=== PATIENT | female | born 1985 | race Caucasian/White ===

== ENCOUNTER 2017-12-26 13:23 | Inpatient (IN) | payer OTHER ==
[~2017-12-26] VITALS: Ht 160 cm; Wt 65.8 kg
[2017-12-26 13:32] VITALS: BP 136/68
--- NOTE | 2017-12-26 13:35 | NUR ---
32 YO FEMALE BIB EMS FROM CONFUCIANIST FOR ALTERED MENTAL STATUS, AWAKE AND NON VERBAL ON ARRIVAL, WAS HAVING A PSYCHOTIC BREAK AT THE CONFUCIANIST. UNKNOWN HX. TACHICARDIA NOTED. HR EVEN AND REGULAR, RR EVEN AND UNLABORED, LS CLEAR THROUOUT, BS ACTIVE X4, ABD SOFT AND NON TENDER, NO TRAUMA OR INJURIES NOTED. ER MD MADE AWARE, WILL CONTINUE TO MONITOR.
--- NOTE | 2017-12-26 13:40 | NUR ---
Patient being evaluated by physician at bedside.
[2017-12-26] MEDS ORDERED: NACL 0.9% 1,000 ML IV ONE (13:54)
--- NOTE | 2017-12-26 14:00 | NUR ---
PT RESPONDED TO DR RENEE WITH SIMPLE ANSWERS STATING "NO" TO URINATING ON HER SELF, AND " I DID NOT" TO BITTING TOUNGE . SPEECH CLEAR.
--- NOTE | 2017-12-26 15:00 | NUR ---
PT REFUSED CATHETER
--- NOTE | 2017-12-26 15:05 | NUR ---
PT NON VERBAL AT THIS TIME
[2017-12-26 15:44] LABS: BASOPHILS % (AUTO) 0.3 % (0.0-2.0); EOSINOPHILS % (AUTO) 0.6 % (0.0-4.0); HEMATOCRIT 38.1 % (36-48); HEMOGLOBIN 12.6 g/dL (12.0-16.0); LYMPHOCYTES # (AUTO) 1.1 K/uL (2.5-16.5); LYMPHOCYTES % (AUTO) 15.7 % (20.5-51.1); MEAN CORPUSCULAR HEMOGLOBIN 27 pg (27-31); MEAN CORPUSCULAR HGB CONC 33 g/dL (33-37); MEAN CORPUSCULAR VOLUME 81.1 fL (80-94); MONOCYTES # (AUTO) 0.3 K/uL (0.8-1.0); MONOCYTES % (AUTO) 4.7 % (1.7-9.3); NEUTROPHILS # (AUTO) 5.5 K/uL (1.8-7.7); NEUTROPHILS % (AUTO) 78.7 % (42.2-75.2); PLATELET COUNT (AUTO) 224 K/uL (140-450); RED CELL DISTRIBUTION WIDTH 14.7 % (11.6-13.7)
--- NOTE | 2017-12-26 16:00 | NUR ---
PT REFUSED CT
--- NOTE | 2017-12-26 16:05 | NUR ---
PT NON VERBAL AT THIS TIME
[2017-12-26 16:13] LABS: ALBUMIN 4.3 g/dL (3.4-5.0); ANION GAP 14.1 (8-16); ASPARTATE AMINOTRANSFERASE 12 U/L (15-37); CARBON DIOXIDE 26.1 mmol/L (21-32); CHLORIDE 99 mmol/L (98-107); CREATININE 0.6 mg/dL (0.6-1.3); GFR ARICAN-AMERICAN 151 mL/min (>90); GLUCOSE 120 mg/dL (74-106); POTASSIUM 3.2 mmol/L (3.5-5.1); SODIUM SERUM 136 mmol/L (136-145); TOTAL BILIRUBIN 0.2 mg/dL (0.0-1.0); UREA NITROGEN, BLOOD 9 mg/dL (7-18)
[2017-12-26 16:18] LABS: ACETAMINOPHEN < 0.5 ug/ml (10-30)
--- NOTE | 2017-12-26 16:42 | NUR ---
[place]- Officer Edd and Officer Logan at bedside evaluating patient
--- NOTE | 2017-12-26 16:44 | NUR ---
[place] [employer] AT BEDSIDE
--- NOTE | 2017-12-26 16:45 | NUR ---
PT SPEAKING TO PD, PT STATES HX OF SEIZURES,
[2017-12-26] MEDS ORDERED: ESCI20TA PO (17:36)
[2017-12-26] MEDS ORDERED: CYAN1TAB82 PO (17:36)
[2017-12-26] MEDS ORDERED: LEVO0.029 PO (17:36)
[2017-12-26] MEDS ORDERED: CITA10TA11 PO (17:36)
[2017-12-26] MEDS ORDERED: KEP500 PO (17:36)
[2017-12-26] MEDS ORDERED: DIVA250T PO (17:36)
[2017-12-26] MEDS ORDERED: PHEN100C3 PO (17:36)
[2017-12-26] MEDS ORDERED: ACETAMINOPHEN 325 MG TAB PO PRN (17:40)
[2017-12-26] MEDS ORDERED: HYDROcodone/APAP 5/325 MG 1 TAB TAB PO PRN ×2 (17:40)
[2017-12-26] MEDS ORDERED: ONDANSETRON 4 MG/2 ML VIAL IVP PRN (17:40)
[2017-12-26] MEDS ORDERED: POTASSIUM CHLORIDE 10 MEQ TABER PO ONE (17:40)
[2017-12-26] MEDS ORDERED: LORazepam 2 MG/ML VIAL IVP PRN (17:40)
--- NOTE | 2017-12-26 18:20 | NUR ---
PT WAS IN FORMED OF ADMITION AND JUMPED OFF OF [facility] PULLING OUT IV, TIP WAS INTACT. DRESSING APPLIED TO SITE. PT REFUSED TO VERBALIZE ANYTHING, SECURITY WAS CALLED. PT PEED ON FLOOR. BATHROOM WAS OFFERED , PT CONTINUED NOT TO BE NON VERBAL. PT POSITIONED SELF BACK ONTO GURNEY
--- NOTE | 2017-12-26 18:35 | NUR ---
PT ADMITTED TO [facility]. ARRIVED TO UNIT VIA [facility] ACCOMPANIED BY RNS AND SECURITY. BEDSIDE REPORT GIVEN BY REILLY FERREIRA. PT TRANSFERRED TO BED FROM [facility]. PT IS AWAKE BUT NOT RESPONDING OR TALKING TO STAFF. HAD EYES CLOSED AND WOULD NOT MOVE IN BED. PT HAD VOIDED IN BED. CHANGED GOWN. NO IV SITE. REPORTED BY ER NURSE PT HAD PULLED OUT. MRSA SWAB DONE. VS: BP 112/73, HR 111, TEMP 98.1, O2 SAT 98% ON RA. UNABLE TO ASSESS PAIN LEVEL WHEN ASKING QUESTIONS TO PT. PT DOES NOT RESPOND. PLACED IN ROOM 109B. WILL CONTINUE TO MONITOR.
--- NOTE | 2017-12-26 18:35 | NUR ---
Patient will be admitted to care of DR MAYEN. Admited to M/S. Will go to room 109B. Belongings list completed. Report to MOUSTAPHA FERREIRA .
--- NOTE | 2017-12-26 19:30 | NUR ---
ENDORSED PT TO SHIPYARD PAINTING SUPERVISOR NURSE BENITO AT BEDSIDE FOR CONTINUITY OF CARE. PT IN STABLE CONDITION.
[2017-12-26 19:31] VITALS: BP 112/73
--- NOTE | 2017-12-26 19:31 | NUR ---
RECEIVED BEDSIDE REPORT FROM DAY SHIFT NURSE CHELSEA, PT RESTING, NO DISTRESS NOTED, PT REFUSED TO TALK TO NURSE, WHEN ASKED PT SIMPLY IGNORED NURSE AND STARES AT THE WALL, PT STABLE, INITIAL ASSESSMENT DONE, ALL SAFETY PRECAUTION MET, WILL CONTINUE FREQ MONITORING.
[2017-12-26] MEDS: levETIRAcetam 500 MG TAB PO SCH (21:00)
--- NOTE | 2017-12-26 21:35 | NUR ---
PT REFUSED MEDICATION, WOULD NOT ANSWER NURSE, AND WOULD NOT TAKE MEDICATION, PT STABLE, NO DISTRESS NOTED, WILL CONTINUE WITH FREQ MONITORING.
--- NOTE | 2017-12-26 23:33 | NUR ---
CHECKED ON PT, PT REFUSED V/S, BP WAS ABLE TO BE TAKEN, BUT PT REFUSED, PT STABLE, NO SOB, ON ROOM AIR, PT STARES AT THE WALL, FLAT AFFECT, NOT RESPONDING TO NAME, WILL CONTINUE TO MONITOR FREQUENTLY.
[2017-12-27] VITALS: BP 111/74
--- NOTE | 2017-12-27 02:03 | NUR ---
CHECKED ON PT, PT SLEEPING, NO DISTRESS NOTED, CALL LIGHT WITHIN REACH, WILL CONTINUE TO MONITOR.
--- NOTE | 2017-12-27 03:10 | NUR ---
CHECKED ON PT, PT STARING AT THE CEILING, NOT RESPONDING TO NAME, PT HAD FLAT AFFECT, NO DISTRESS NOTED, WILL CONTINUE TO MONITOR.
--- NOTE | 2017-12-27 04:22 | NUR ---
PT SLEEPING, NO DISTRESS NOTED, CALL LIGHT WITHIN REACH, WILL CONTINUE TO MONITOR.
--- NOTE | 2017-12-27 05:00 | NUR ---
PT REFUSES BLOOD DRAW, NO DISTRESS NOTED, CALL LIGHT WITHIN REACH, WILL CONTINUE TO MONITOR.
[2017-12-27] MEDS ORDERED: LEVOTHYROXINE 0.025 MG TAB PO SCH (07:16)
--- NOTE | 2017-12-27 07:27 | NUR ---
PT REFUSES MEDICATION, WOULD NOT ANSWER TO NURSE, PT RESTING, NO DISTRESS NOTED, CALL LIGHT WITHIN REACH, WILL CONTINUE TO MONITOR.
--- NOTE | 2017-12-27 07:28 | NUR ---
ENDORSED PT TO DAY SHIFT NURSE, PT IN STABLE CONDITION, NO DISTRESS NOTED.
--- NOTE | 2017-12-27 07:28 | NUR ---
RECEIVED PT FROM SOCIAL MEDIA ASSISTANT NURSE BENITO. PT FLAT AFFECT, DOES NOT MAKE NEEDS KNOWN OR MAKE EYE CONTACT, V/S TAKEN NOTHING ABNORMAL, DOES NOT ANSWER QUESTIONS. EXPLAINED PLAN OF CARE, WILL CONTINUE TO MONITOR.
[2017-12-27 08:00] VITALS: BP 112/72
[2017-12-27] MEDS: PHENYTOIN 100 MG CAPER PO SCH ×3 (08:56→17:00)
[2017-12-27] MEDS: ESCITALOPRAM 20 MG TAB PO SCH (08:57)
[2017-12-27] MEDS: levETIRAcetam 500 MG TAB PO SCH ×2 (08:57→21:00)
[2017-12-27] MEDS: ENOXAPARIN 40 MG/0.4 ML SYR SUBQ SCH (08:57)
--- NOTE | 2017-12-27 08:58 | NUR ---
PATIENT REFUSED ALL MEDIATION/TREATMENT/FOOD AND WATER. EDUCATION PROVIDED, WILL CONTINUE TO MONITOR.
--- NOTE | 2017-12-27 09:24 | NUR ---
PATIENT HAS BEEN SCREENED AND CATEGORIZED LOW NUTRITION RISK. PATIENT WILL BE SEEN WITHIN 7 DAYS OF ADMISSION. 01/02/[address]
[2017-12-27] MEDS ORDERED: MAGNESIUM SULFATE 50% 1,000 MG in NACL 0.9% 50 ML IV ONE (10:30)
[2017-12-27] MEDS ORDERED: MAGNESIUM SULFATE 1GM in DEXTROSE 5% 100 ML PREMIX IV SCH (11:00)
--- NOTE | 2017-12-27 12:50 | NUR ---
IV PLACED IN L FA 20 G. INTACT AND PATENT. WILL GIVE DUE MEDICATIONS NOW.
--- NOTE | 2017-12-27 13:00 | NUR ---
Vacuum Metalizer Operator Notes: I attempted to met with patient to screen and gather additional information about her. Patient refused to communicate with these insurance underwriter sales, and provide any information. Patient close her eyes and turn around the opposite side where these insurance underwriter sales was standing to avoid interaction. I asked her some questions and left room after several attempts to talk to patient with no response back from her.
--- NOTE | 2017-12-27 13:14 | NUR ---
PT STATED "I KNOW WHAT YOU'RE DOING". ASKED IF CAN GIVE DUE MEDICATIONS PT REFUSED.
--- NOTE | 2017-12-27 13:27 | NUR ---
CM NOTE INITIAL REVIEW FAXED TO [facility] [phone] [place] [phone] [place] [phone]
--- NOTE | 2017-12-27 15:10 | NUR ---
PT STATED, "HURRY UP AND TRY TO KILL ME". DR JUDD MADE AWARE. WILL CONTINUE TO MONITOR
[2017-12-27 15:27] VITALS: BP 110/53
--- NOTE | 2017-12-27 15:30 | NUR ---
PT WILL BE PLACED ON 5150 HOLD, 1:1 SITTER IMPLEMENTED, ALL SAFETY CONSIDERATIONS MET, WILL CONTINUE TO MONITOR.
--- NOTE | 2017-12-27 17:20 | NUR ---
PT IN BED NO SIGNS OF DISTRESS, EDUCATED ON NEED FOR DUE MEDICATION, PT STATES, "NO". CHARGE NURSE DON MADE AWARE. WILL CONTINUE TO MONITOR.
--- NOTE | 2017-12-27 18:10 | NUR ---
PT RESTING IN BED, REFUSED DINNER AD FLUIDS, STILL 1:1 SITTER, WILL CONTINUE TO MONITOR.
--- NOTE | 2017-12-27 19:13 | NUR ---
BEDSIDE REPORT GIVEN TO RAFAT ADKINS. PT STABLE AT THIS TIME.
--- NOTE | 2017-12-27 19:15 | NUR ---
RECD. RESTING IN BED WITH EYES CLOSED. REFUSED TO OPEN EYES WHEN SELF INTRODUCED. NOTED EYELASHES KEEP ON MOVING WHILE QUESTIONS WERE BEING ASKED TO ASSESS PATIENT. STILL REFUSED TO OPEN EYES AND TALK. RESPIRATION EVEN AND UNLABORED. IV SALINE LOCK AT THE LEFT ARM G22, PATENT AND INTACT. NO DISTRESS NOTED AND NO APPEARANCE OF DISCOMFORT 0/10. VS STABLE. WILL CONTINUE TO MONITOR PATIENT. 1:1 SITTER SITTING NEAR DOOR.
--- NOTE | 2017-12-27 20:00 | NUR ---
Patient's Plan of Care was discussed and reviewed with RAFAT: LUCILLE
--- NOTE | 2017-12-27 21:00 | NUR ---
TRIED AGAIN TO CONVERSE WITH PATIENT. REMINDED SHE HAS TO TAKE MEDICATION ORDERED BY MD. OPENS EYES AT FIRST WITH A BLANK STARE. STILL DOES NOT TALK. OFFERED JUICE BUT JUICE JUST COMES OUT. CHECKED PATIENT WITH SITTER IF PATIENT IS CLEAN. ALLOWED ASSISTANT WOMEN'S ROWING COACH TO CHECKED AND ALLOWS TO HAVE HER FACE WIPE WITH A SMALL TOWEL. WHEN SHAUNA OFFERED, DID NOT RESPOND CONTINUED CLOSING HER EYES.
--- NOTE | 2017-12-27 21:30 | NUR ---
ASSUMED ROLE OF NURSE SITTER FOR THE PATIENT, STILL IN BED WITH EYES CLOSED. WILL CONTINUE TO MONITOR BEHAVIOR.
[2017-12-27] MEDS: DEXT 5% / NACL 0.45% 1,000 ML IV SCH (23:41)
--- NOTE | 2017-12-27 23:41 | NUR ---
INFUSED D5NS AT 75 ML/HR ORDERED BY DR. MAYEN. DID NOT ATTEMPT TO TAKE IV OFF.
[2017-12-28] VITALS: BP 106/69
--- NOTE | 2017-12-28 03:00 | NUR ---
IV INFILTRATED, WILL INSERT NEW IV LINE.
--- NOTE | 2017-12-28 06:00 | NUR ---
NEW SITTER SITTING NEAR DOOR TO MONITOR PATIENT. NO UNUSUAL BEHAVIOR NOTED DURING SHIFT. REFUSED MEDICATIONS, JUICE OFFERED. SLEEPING MOST OF THE TIME.
[2017-12-28] MEDS: LEVOTHYROXINE 0.025 MG TAB PO SCH (06:30)
--- NOTE | 2017-12-28 06:30 | NUR ---
OPENS EYES, STILL DOES NOT SPEAK. NEW IV LINE INSERTED AT THE RIGHT HAND G24 BY HANNA LOPEZ.
--- NOTE | 2017-12-28 06:54 | NUR ---
WHEN INQUIRED IF SHE WILL TAKE PROTONIX ORDERED BY , DOES NOT SPEAK BUT SHAKES HEAD. ADVISED TO TAKE MORNING MEDS AND EAT BREAKFAST. DOES NOT RESPOND.
--- NOTE | 2017-12-28 07:25 | NUR ---
RECEIVED REPORT FROM NIGHTSHIFT NURSE AT BEDSIDE. PATIENT PRESENTS ON RIGHT LATERAL SIDE LYING POSITION. PATIENT HAS AN IV ON HER RIGHT HAND 24 G RUNNING D5 O.45 NS AT 75 ML/HR. PATIENT DOES NOT SPEAK AT THIS TIME. PATIENT HAS 1:1 SITTER. NO SIGNS OF ACTIVE HALLUCINATIONS. NO DISTRESS NOTED. NO PAIN NOTED. PATIENT'S BED LOWERED. WILL CONTINUE TO MONITOR PATIENT.
--- NOTE | 2017-12-28 07:30 | NUR ---
ENDORSED TO AM NURSE FOR CONTINUITY OF CARE.
[2017-12-28 08:00] VITALS: BP 114/66
[2017-12-28] MEDS: DIVALPROEX 250 MG TABEC PO SCH (08:45)
[2017-12-28] MEDS: PHENYTOIN 100 MG CAPER PO SCH ×3 (08:45→17:00)
[2017-12-28] MEDS: levETIRAcetam 500 MG TAB PO SCH ×2 (08:46→21:00)
[2017-12-28] MEDS: ESCITALOPRAM 20 MG TAB PO SCH (08:46)
[2017-12-28] MEDS: ENOXAPARIN 40 MG/0.4 ML SYR SUBQ SCH (08:48)
--- NOTE | 2017-12-28 09:30 | NUR ---
PATIENT RESTING AT THIS TIME. NO DISTRESS NOTED. 1:1 SITTER AT BEDSIDE. WILL CONTINUE TO MONITOR PATIENT.
--- NOTE | 2017-12-28 09:45 | NUR ---
CM NOTE CONCURRENT REVIEW FAXED TO [facility] [phone] [place] [phone] [place] [phone]. RECEIVED ORDER TO TRANSFER TO [facility]. PACKET FAXED TO [facility].
[2017-12-28 10:01] LABS: BASOPHILS % (AUTO) 0.5 % (0.0-2.0); EOSINOPHILS # (AUTO) 0.1 K/uL (0-0.4); EOSINOPHILS % (AUTO) 1.3 % (0.0-4.0); HEMATOCRIT 38.9 % (36-48); HEMOGLOBIN 12.8 g/dL (12.0-16.0); LYMPHOCYTES # (AUTO) 1.6 K/uL (2.5-16.5); LYMPHOCYTES % (AUTO) 25.4 % (20.5-51.1); MEAN CORPUSCULAR HEMOGLOBIN 27 pg (27-31); MEAN CORPUSCULAR HGB CONC 33 g/dL (33-37); MEAN CORPUSCULAR VOLUME 80.9 fL (80-94); MONOCYTES # (AUTO) 0.4 K/uL (0.8-1.0); MONOCYTES % (AUTO) 5.8 % (1.7-9.3); NEUTROPHILS # (AUTO) 4.3 K/uL (1.8-7.7); PLATELET COUNT (AUTO) 243 K/uL (140-450); RED BLOOD CELL COUNT(AUTO) 4.81 MIL/uL (4.20-5.40); RED CELL DISTRIBUTION WIDTH 14.4 % (11.6-13.7); WHITE BLOOD COUNT (AUTO) 6.4 K/uL (4.8-10.8)
[2017-12-28 10:15] LABS: ALBUMIN 4.1 g/dL (3.4-5.0); ANION GAP 13.5 (8-16); CREATININE 0.7 mg/dL (0.6-1.3); POTASSIUM 3.5 mmol/L (3.5-5.1); TOTAL BILIRUBIN 0.4 mg/dL (0.0-1.0)
[2017-12-28 11:22] LABS: FREE T4 (FREE THYROXINE) 0.92 ng/dL (0.76-1.46); THYROID STIMULATING HORMONE 1.03 uIU/mL (0.34-3.74)
[2017-12-28 11:38] LABS: PHENYTOIN (DILANTIN) 21.1 ug/ml (10.0-20.0)
--- NOTE | 2017-12-28 12:15 | NUR ---
SPOKE TO DR. CALHOUN REGARDING 21.1 DILANTIN LEVEL AND ADMINISTRATION OF DILANTIN 100 MG AT 13:[address]. CALHOUN SAID, "IT IS OKAY TO GIVE". WILL OFFER MEDICATION TO PATIENT
[2017-12-28] MEDS: DEXT 5% / NACL 0.45% 1,000 ML IV SCH (12:42)
--- NOTE | 2017-12-28 13:30 | NUR ---
PATIENT RESTING NO DISTRESS NOTED. WILL CONTINUE TO MONITOR
--- NOTE | 2017-12-28 15:03 | NUR ---
PATIENT RESTING AT THIS TIME. NO DISTRESS NOTED. 1:1 SITTER PRESENT. WILL CONTINUE TO MONITOR PATIENT.
--- NOTE | 2017-12-28 15:24 | NUR ---
Faxed packet to Shirley at [facility]. Left Message for [facility]. Called [facility] and spoke with Martha. No beds. Called [facility]. No answer.
[2017-12-28 16:00] VITALS: BP_SYST 100; BP_SYST 98; BP_DIAS 59; BP_DIAS 62
--- NOTE | 2017-12-28 17:20 | NUR ---
PATIENT RESTING IN BED. PATIENT HAS 1:1 SITTER. NO DISTRESS NOTED. WILL CONTINUE TO MONITOR PATIENT.
--- NOTE | 2017-12-28 19:15 | NUR ---
GAVE REPORT TO NIGHTSHIFT NURSE. PATIENT HAS 1:1 SITTER. PATIENT IN STABLE CONDITION.
--- NOTE | 2017-12-28 19:16 | NUR ---
RECD. IN BED, EYES OPEN BUT STILL NOT TALKING. RESPIRATION EVEN AND UNLABORED. IV OF 1/2 NS INFUSING AT 75 ML/HR, RIGHT HAND G24. PLAN OF CARE FOR THE SHIFT DISCUSSED. NO REACTION NOTE. 1:1 SITTER MONITORING PATIENT. NO APPEARANCE OF PAIN NOTED 0/10.
--- NOTE | 2017-12-28 19:31 | NUR ---
Patient's Plan of Care was discussed and reviewed with RAFAT: LUCILLE
--- NOTE | 2017-12-28 20:30 | NUR ---
HAT PLACE ON TOILET BOWL. REMINDED PATIENT THE NEED TO COLLECT URINE FOR LAB TEST. DID NOT RESPOND. REMINDED SITTER TO ASSIST PATIENT TO COLLECT SPECIMEN.
--- NOTE | 2017-12-28 21:35 | NUR ---
SHAUNA OFFERED FOR THE NIGHT, BUT KEEP ON PRETENDING TO BE SLEEPING. TAP ARM TO WAKE UP, OPEN EYES A LITTLE AND THEN CLOSED AGAIN. EXPLAINED THE IMPORTANCE OF TAKING THIS MEDICATION BUT DID NOT BOTHER TO OPEN EYES AGAIN.
[2017-12-29] VITALS: BP 106/70
--- NOTE | 2017-12-29 01:01 | NUR ---
Notified Charge nurse Claribel RN , at this time there are no beds available for placement , will continue to call for placement and notify charge nurse is placement is found.
[2017-12-29] MEDS: DEXT 5% / NACL 0.45% 1,000 ML IV SCH ×2 (01:44→15:00)
--- NOTE | 2017-12-29 05:30 | NUR ---
No vacancy at this time, will endorsed to morning shift to continue find placement .
[2017-12-29] MEDS: LEVOTHYROXINE 0.025 MG TAB PO SCH (06:30)
--- NOTE | 2017-12-29 07:25 | NUR ---
SLEEPING MOST OF THE TIME, SPOKE ONLY ONCE TO SITTER. REFUSED ALL MEDICATIONS FOR THE SHIFT. CONDITION REMAIN STABLE. ENDORSED TO AM NURSE FOR CONTINUITY OF CARE.
--- NOTE | 2017-12-29 07:26 | NUR ---
RECEIVED REPORT FROM THE EL TEACHER NURSE. PT IS AWAKE AND ORIENTED. INTRODUCED MYSELF HER NURSE FOR TODAY. PT IS COOPERATIVE, OBEYS SIMPLE COMMANDS. ALLOWED ME TO CHECK HER V/S, WITHIN NORMAL LIMITS. ASKED HER IF SHE WILL TAKE MORNING MEDS. SHE SAID OK. WILL PREPARE. IV ON R HAND 24G. IT IS SL. PER EL TEACHER NURSE, IV PUMP KEPT BEEPING. IV SITE LOOKS INFILTRATED. SHE SAID IT IS SORE. SKIN INTACT. SITTER IN THE ROOM. PLAN: TRANSFER TO A PSYCH FACILITY AND POSSIBLY GET A URINE SAMPLE FOR LAB. WILL REMIND SITTER TO REMIND PT. HAT IN TOILET. WILL CONTINUE TO MONITOR PT.
[2017-12-29 08:00] VITALS: BP 108/69
[2017-12-29] MEDS: DIVALPROEX 250 MG TABEC PO SCH (08:32)
[2017-12-29] MEDS: ESCITALOPRAM 20 MG TAB PO SCH (08:32)
[2017-12-29] MEDS: levETIRAcetam 500 MG TAB PO SCH ×2 (08:32→21:00)
[2017-12-29] MEDS: PHENYTOIN 100 MG CAPER PO SCH ×3 (08:32→16:15)
[2017-12-29] MEDS: ENOXAPARIN 40 MG/0.4 ML SYR SUBQ SCH (08:36)
--- NOTE | 2017-12-29 08:40 | NUR ---
ADMINISTERED MORNING MEDS. PT TOLERATED WELL. REMINDED PT RE URINE SAMPLE. SITTER IN ROOM. WILL CONTINUE TO MONITOR PT.
--- NOTE | 2017-12-29 10:40 | NUR ---
PT SLEEPING. NO SIGNS OF DISTRESS. SITTER IN THE ROOM. WILL CONTINUE TO MONITOR PT.
--- NOTE | 2017-12-29 12:08 | NUR ---
PT SLEEPING. UNABLE TO STAY AWAKE LONG ENOUGH TO TAKE HER MEDS. HELD DILANTIN FOR ASP PRECAUTION. SITTER IN THE ROOM. WILL CONTINUE TO MONITOR PT.
[2017-12-29 15:57] LABS: BILIRUBIN,URINE NEGATIVE (NEGATIVE); BLOOD, URINE TRACE-I (NEGATIVE); COLOR,URINE YELLOW (YELLOW); LEUKOCYTE ESTERASE ,URINE 1+ (NEGATIVE); NITRITE, URINE NEGATIVE (NEGATIVE); UGLUCOSE NEGATIVE (NEGATIVE)
[2017-12-29 16:00] VITALS: BP 100/59
[2017-12-29 16:04] LABS: BARBITURATE, URINE NEG. ng/ml (NEG <=200); BENZODIAZEPINE, URINE NEG. ng/mL (NEG <=200); CANNABINOID, URINE NEG. ng/mL (NEG <=50); COCAINE, URINE NEG. ng/mL (NEG <=300); OPIATE, URINE NEG. ng/mL (NEG <=2000); PHENCYCLIDINE SCREEN,URINE NEG. ng/mL (NEG <=25)
--- NOTE | 2017-12-29 16:14 | NUR ---
VS WITHIN NORMAL LIMITS. PT SLEEPING. WOKE UP AND WENT RIGHT BACK TO SLEEP. NO SIGNS OF DISTRESS. SITTER IN THE ROOM. DIDN'T TOUCH LUNCH. WILL CONTINUE TO MONITOR PT. Addendum: 12/29/17 at 1616 by Gila Garcia RN PALLAVI CHAUDHARI D/T PT UNABLE TO STAY AWAKE LONG ENOUGH TO TAKE. ASP PRECAUTION.
[2017-12-29 17:53] LABS: APPEARANCE,URINE HAZY (CLEAR)
[2017-12-29 19:17] LABS: RBC,URINE 0-5 (RARE) /HPF (0-5); WBC,URINE 0-5 (RARE) /HPF (0-5)
--- NOTE | 2017-12-29 19:34 | NUR ---
ENDORSED PT TO THE REDYE HAND NURSE AT BEDSIDE FOR CONTINUITY OF CARE. PT IS IN STABLE CONDITION.
--- NOTE | 2017-12-29 19:35 | NUR ---
RECEIVED REPORT FROM DAY SHIFT RN, PATIENT RESTING IN BED, AWAKE BUT REFUSE TO TALK, NO S/S OF DISTRESS NOTED, RESPIRATION EVEN AND UNLABORED. NO IV ACCESS AT THIS TIME. 1:1 SITTER AT THE DOOR, SAFETY MEASURE ENSURED, WILL CONTINUE TO MONITOR.
--- NOTE | 2017-12-29 21:55 | NUR ---
OFFER PATIENT DUE MEDICATION KEPPRA, BUT PATIENT DID NOT TALK BACK TO ME, AND CLOSED HER EYES AND TURNED HER HEAD AWAY. PATIENT REFUSED MEDICATION, EDUCATION PROVIDED, BUT PATIENT STILL REFUSED. SAFETY MEASURE ENSURED, WILL CONTINUE TO MONITOR.
[2017-12-30] VITALS: BP 95/60
--- NOTE | 2017-12-30 00:07 | NUR ---
VITAL SIGNS STABLE, NO S/S OF DISTRESS NOTED, RESPIRATION EVEN AND UNLABORED, ON ROOM AIR. 1:1 SITTER AT THE DOOR, SAFETY MEASURE, WILL CONTINUE TO MONITOR.
--- NOTE | 2017-12-30 03:08 | NUR ---
PATIENT IS SLEEPING, NO S/S OF DISTRESS NOTED, RESPIRATION EVEN AND UNLABORED, ON ROOM AIR. 1:1 SITTER AT THE DOOR, SAFETY MEASURE ENSURED, WILL CONTINUE TO MONITOR.
[2017-12-30] MEDS: DEXT 5% / NACL 0.45% 1,000 ML IV SCH ×2 (05:11→17:33)
--- NOTE | 2017-12-30 05:14 | NUR ---
PATIENT LET US TO START A NEW IV. NEW IV 24G TO THE LEFT WRIST. OLD IV CATHETER TAKEN OUT, TIP INTACT. 1:1 SITTER AT THE DOOR. SAFETY MEASURE ENSURED, WILL CONTINUE TO MONITOR.
[2017-12-30] MEDS: LEVOTHYROXINE 0.025 MG TAB PO SCH (05:33)
--- NOTE | 2017-12-30 07:22 | NUR ---
ENDORSED PLAN OF CARE TO DAY SHIFT RN, PATIENT IS IN STABLE CONDITION.
--- NOTE | 2017-12-30 07:25 | NUR ---
RECEIVED BEDSIDE REPORT FROM NON LICENSED OPERATOR NURSE. PATIENT IS SLEEPING, NO SIGNS OF DISTRESS ON ROOM AIR. CHECKED THE ROOM FOR ANY HAZARDS. IV POLE AT BEDSIDE, IV ON R WRIST 24G INFUSING D5/NS .45 AT 75ML/HR. IV IS CLEAN, DRY AND INTACT. PATIENT HAS NOT ATTEMPTED TO REMOVE THE IV. SKIN IS INTACT. PATIENT IS ON MS. BED IN LOW POSITION. 3 SIDE RAILS UP. 1:1 SITTER.
[2017-12-30 08:00] VITALS: BP 95/59
--- NOTE | 2017-12-30 08:36 | NUR ---
PATIENT AWAKE, BLANK STARE. ASKING HER IF SHE WANTS TO EAT HER BREAKFAST. PATIENT NODDED NO. CURRENTLY NONVERBAL. REFUSED TO EAT OR ANSWER ANY QUESTIONS. 1:1 SITTER.
[2017-12-30] MEDS: ESCITALOPRAM 20 MG TAB PO SCH (09:44)
[2017-12-30] MEDS: PHENYTOIN 100 MG CAPER PO SCH ×3 (09:44→17:30)
[2017-12-30] MEDS: DIVALPROEX 250 MG TABEC PO SCH (09:44)
[2017-12-30] MEDS: levETIRAcetam 500 MG TAB PO SCH ×2 (09:45→20:40)
[2017-12-30] MEDS: ENOXAPARIN 40 MG/0.4 ML SYR SUBQ SCH (09:45)
--- NOTE | 2017-12-30 09:49 | NUR ---
ADMINISTERED MEDS. PATIENT TOLERATED WELL. NO COMPLAINTS AT THIS TIME. BED LOCKED. 1:1 SITTER
--- NOTE | 2017-12-30 11:06 | NUR ---
[facility] aware patients 5150 is expiring today 12/30/2017 @ 1523. Will continue to look for placement, but will call Unit to see what updated plan is on patient for further psych hold or not.
--- NOTE | 2017-12-30 12:00 | NUR ---
PATIENT IS SLEEPING. NO SIGNS OF DISTRESS. WILL CONTINUE TO MONITOR THE PATIENT. 1:1 SITTER
--- NOTE | 2017-12-30 13:16 | NUR ---
ADMINISTERED MED. PATIENT TOLERATED WELL. PATIENT REFUSED TO EAT HER LUNCH. R WRIST 24 G INFILTRATED. HANNA MOORE PLACED L FA 22G INFUSING D5 1/2NS AT 75ML/HR. IV IS CLEAN DRY AND INTACT. BED IN LOW POSITION. 1:1 SITTER. WILL CONTINUE TO MONITOR
--- NOTE | 2017-12-30 13:47 | NUR ---
CM NOTE CONCURRENT REVIEW FAXED TO [facility] [phone] [place] [phone] [place] [phone].
--- NOTE | 2017-12-30 14:32 | NUR ---
PATIENT IS SLEEPING. NO COMPLAINTS AT THIS TIME. WILL CONTINUE TO MONITOR THE PATIENT. 1:1 SITTER
[2017-12-30 16:00] VITALS: BP 97/60
--- NOTE | 2017-12-30 16:32 | NUR ---
No bed vacancies at contacted hospitals at this time: [facility] [employer] Will endorse to night shift supervisor to continue search for placement.
--- NOTE | 2017-12-30 17:06 | NUR ---
PATIENT IS SITTING QUIETLY IN BED. ASKED PATIENT IF SHE HAD FAMILY. SHE SAID HER DAD AND MOM . SHE ALSO STATED THAT HER TWO SISTERS DONT WANT HER BECAUSE SHE HAS SEIZURES. I ASKED HER IF SHE WANTS ME TO TRY AND SEE IF I CAN CONTACT THEM AND SHE REFUSED. WILL CONTINUE TO MONITOR THE PATIENT. 1:1 SITTER.
--- NOTE | 2017-12-30 17:35 | NUR ---
ADMINISTERED MEDS. PATIENT TOLERATED WELL. HOB UP, PATIENT IS CURRENTLY WAITING FOR HER FOOD. WILL CONTINUE TO MONITOR. 1:1 SITTER
--- NOTE | 2017-12-30 19:23 | NUR ---
GAVE BEDSIDE REPORT TO FEATHERER NURSE. PATIENT IS IN STABLE CONDITION.
--- NOTE | 2017-12-30 19:30 | NUR ---
RECEIVED FROM AM RN IN BED SLEEPING. WOKE UP WHEN TOUCHED. NODS HEAD WHEN INTRODUCED MYSELF. NO RESTLESSNESS. NO COMPLAINTS DONE. SMILED A LITTLE . QUIET. WENT BACK TO SLEEP AFTER INTRODUCING MYSELF. IVF TO LEFT FOREARM #22 INTRACT AND WITH GOOD BLOOD RETURN. CALL LIGHT WITH IN REACH. NO SOB. ON WATCH STILL.
--- NOTE | 2017-12-30 20:45 | NUR ---
MEDICATION TAKEN P.O. AWAKE AND ALERT. TOOK MEDICATION WITH OUT ANY PROBLEM. TOLERATED WELL. NONE VERBAL STILL BUT NODS HEAD FOR AGREEMENT.
--- NOTE | 2017-12-31 | NUR ---
SLEEPING. NO RESTLESSNESS NOTED. WATCH.
[2017-12-31 01:03] VITALS: BP 104/70
--- NOTE | 2017-12-31 01:04 | NUR ---
PT. WAKES UP WHEN TOUCHED. NODS HEAD FOR YES OR WAGS HEAD FOR NO. PT. SLEEPING MOST OF TIMES. WATCH.
--- NOTE | 2017-12-31 03:51 | NUR ---
SLEEPING WELL. NO RESTLESSNESS NOTED. ON HOLD.
--- NOTE | 2017-12-31 05:49 | NUR ---
PT. AWAKE AT THIS TIME. ESCORTED TO TOILET TO URINATE. HAD A BM LARGE. PT. ANSWERS NO AND YES VERBALLY AT THIS TIME. KEPT CLEAN, DRY AND COMFORTABLE. ABLE TO REQUEST FOR WARM BLANKET . PROVIDED WITH ONE. ENCOURAGED TO SIT UP FOR NOW . REFUSED . WANTED TO GO BACK TO BED AND GO BACK TO SLEEP.
[2017-12-31] MEDS: LEVOTHYROXINE 0.025 MG TAB PO SCH (06:02)
--- NOTE | 2017-12-31 06:14 | NUR ---
KEPT WARM, CLEAN AND COMFORTABLE. NO RESTLESSNESS. NO SOB. NO PAIN COMPLAINT DONE. SLEEPING AGAIN AT THIS TIME. STILL ON STATUS.
--- NOTE | 2017-12-31 07:10 | NUR ---
RECEIVED PATIENT REPORT AT BEDSIDE. PATIENT AWAKE AND ALERT. NO S/S OF DISTRESS. PATIENT WITH 1:1 SITTER. PATIENT CALM AND COOPERATIVE. WILL CONTINUE TO MONITOR
[2017-12-31 08:00] VITALS: BP 100/59
[2017-12-31] MEDS: DEXT 5% / NACL 0.45% 1,000 ML IV SCH ×2 (08:46→20:20)
[2017-12-31] MEDS: DIVALPROEX 250 MG TABEC PO SCH (08:47)
[2017-12-31] MEDS: PHENYTOIN 100 MG CAPER PO SCH ×3 (08:47→17:58)
[2017-12-31] MEDS: levETIRAcetam 500 MG TAB PO SCH ×2 (08:47→21:07)
[2017-12-31] MEDS: ESCITALOPRAM 20 MG TAB PO SCH (08:47)
--- NOTE | 2017-12-31 08:47 | NUR ---
ADMINISTERED DUE MEDICATIONS. PATIENT TOLERATED WELL
[2017-12-31] MEDS: ENOXAPARIN 40 MG/0.4 ML SYR SUBQ SCH (08:48)
--- NOTE | 2017-12-31 12:44 | NUR ---
Patient packet faxed to [facility] and [facility] for review. Per psych intake at both facilities, possible discharges this afternoon. No eta given
--- NOTE | 2017-12-31 13:00 | NUR ---
PATIENT ASLEEP IN BED. NO S/S OF DISTRESS. PATIENT WITH 1:1 SITTER
--- NOTE | 2017-12-31 14:30 | NUR ---
CM NOTE CONCURRENT REVIEW FAXED TO [facility] [phone] [place] [phone] [place] [phone].
[2017-12-31 17:35] VITALS: BP 90/55
--- NOTE | 2017-12-31 19:15 | NUR ---
PATIENT REPORT GIVEN AT BEDSIDE. PATIENT ENDORSED IN STABLE CONDITION
--- NOTE | 2017-12-31 19:16 | NUR ---
REPORT RECEIVED FROM AM SHIFT. PT IN STABLE CONDITION. AAOX4. INTRODUCED SELF TO PT. IV SITE PATENT AND INTACT. SKIN WARM, DRY, AND INTACT WITH NO OPEN WOUNDS. PT 5150 AND DOES NOT SPEAK MUCH. FLAT AFFECT. BED LOCKED IN LOW POSITION. BED ALARM ON. WILL CONTINUE TO MONITOR.
--- NOTE | 2017-12-31 21:00 | NUR ---
PM MEDS GIVEN. PT TOLERATED WELL.
--- NOTE | 2017-12-31 21:55 | NUR ---
NOTED THAT IV SITE INFILTRATED.
--- NOTE | 2017-12-31 23:35 | NUR ---
PT IN BED. STILL VERY FLAT AFFECT. DOES NOT SPEAK AT ALL. WILL CONTINUE TO MONITOR.
[2018-01-01] VITALS: BP 95/60
--- NOTE | 2018-01-01 01:50 | NUR ---
PT ASLEEP IN BED IN NO ACUTE DISTRESS. WILL CONTINUE TO MONITOR.
--- NOTE | 2018-01-01 03:45 | NUR ---
PT ASLEEP RIGHT LATERAL FULLY COVERED UP AND IN NO ACUTE DISTRESS. WILL CONTINUE TO MONITOR.
[2018-01-01] MEDS: LEVOTHYROXINE 0.025 MG TAB PO SCH (05:45)
--- NOTE | 2018-01-01 07:12 | NUR ---
REPORT GIVEN TO AM SHIFT. PT IN STABLE CONDITION.
--- NOTE | 2018-01-01 07:15 | NUR ---
RECEIVED PATIENT REPORT AT BEDSIDE. PATIENT AWAKE AND ALERT. NO S/S OF DISTRESS. PATIENT WITH 1:1 SITTER. PATIENT CALM AND COOPERATIVE. WILL CONTINUE TO MONITOR
[2018-01-01 07:50] VITALS: BP 90/53
[2018-01-01] MEDS: DIVALPROEX 250 MG TABEC PO SCH (08:43)
[2018-01-01] MEDS: levETIRAcetam 500 MG TAB PO SCH ×2 (08:43→20:22)
[2018-01-01] MEDS: ESCITALOPRAM 20 MG TAB PO SCH (08:43)
[2018-01-01] MEDS: PHENYTOIN 100 MG CAPER PO SCH ×3 (08:44→18:12)
[2018-01-01] MEDS: ENOXAPARIN 40 MG/0.4 ML SYR SUBQ SCH (08:44)
[2018-01-01] MEDS: DEXT 5% / NACL 0.45% 1,000 ML IV SCH (09:40)
--- NOTE | 2018-01-01 11:09 | NUR ---
No updates from contacted facilities at this time. will continue to search for placement throughout shift.
--- NOTE | 2018-01-01 12:36 | NUR ---
PATIENT ASLEEP IN BED. PATIENT REFUSING TO EAT LUNCH. WILL CONTINUE TO MONITOR
[2018-01-01 16:00] VITALS: BP 95/54
--- NOTE | 2018-01-01 16:31 | NUR ---
01/01/18 RD INITIAL ASSESSMENT COMPLETED PLEASE REFER TO NUTRITION ASSESSMENT UNDER CARE ACTIVITY FOR ESTIMATED NUTRITIONAL NEEDS. RD RECOMMENDATIONS: 1. CONTINUE REGULAR DIET TOLERATED. 2. ENCOURAGE ORAL INTAKE FOR ADEQUATE NUTRITION INTAKE. 3. HEALTHSHAKE WILL BE ADDED WITH MEALS TO OPTIMIZE NUTRITION INTAKE; EACH HEALTH SHAKE PROVIDES 300 KCAL AND 9 GM OF PROTEIN. 4. IF POOR PO INTAKE CONTINUES, CONSIDER ADDING ENSURE ENLIVE WITH MEALS. 5. RD WILL F/U 2-3 DAYS; HIGH RISK. ALEJANDRA BRIGGS, RD
--- NOTE | 2018-01-01 17:34 | NUR ---
No Bed vacancies in contacted facilities at this time. no updates from contacted facilities as well. will endorse to shift supervisor film processing to continue search for placement.
--- NOTE | 2018-01-01 17:45 | NUR ---
PATIENT REFUSING TO EAT DINNER. PATIENT ONLY ATE PEACHES
--- NOTE | 2018-01-01 19:26 | NUR ---
PATIENT REPORT GIVEN AT BEDSIDE. PATIENT ENDORSED IN STABLE CONDITION
--- NOTE | 2018-01-01 19:27 | NUR ---
REPORT RECEIVED FROM AM SHIFT. PT IN STABLE CONDITION. AAOX4 WITH FLAT AFFECT. SPEAKS VERY LITTLE. IV SITE PATENT AND INTACT. SKIN WARM, DRY, AND INTACT WITH NO OPEN WOUNDS. BED LOCKED IN LOW POSITION. CALL HUFF WITHIN REACH. 1:1 SITTER. WILL CONTINUE TO MONITOR.
--- NOTE | 2018-01-01 20:45 | NUR ---
PM MED GIVEN. PT TOLERATED WELL. ASKED IF SHE WANTED WATER INSTEAD OF JUICE. STATED SHE WANTED WATER.
--- NOTE | 2018-01-01 23:30 | NUR ---
PT ASLEEP. 1:1 SITTER. NOT ACUTE DISTRESS NOTED.
[2018-01-02] VITALS: BP 98/58
--- NOTE | 2018-01-02 02:00 | NUR ---
PT ASLEEP COMFORTABLY WITH NO S/S OF DISTRESS. WILL CONTINUE TO MONITOR.
--- NOTE | 2018-01-02 04:15 | NUR ---
REPORT OF PT IN STABLE CONDITION RECEIVED FROM GUY FERREIRA.NO DISTRESS NOTED NOW.
[2018-01-02] MEDS: DEXT 5% / NACL 0.45% 1,000 ML IV SCH (06:25)
[2018-01-02] MEDS: LEVOTHYROXINE 0.025 MG TAB PO SCH (06:27)
--- NOTE | 2018-01-02 06:28 | NUR ---
SLEEPING.REFUSED SYNTHROID THIS AM.NEW IV BAG OF D5 1/2 NS (500 ML BAG) STARTED AND INFUSING WELL.NO S/S OF ANY DISTRESS NOTED.
--- NOTE | 2018-01-02 07:10 | NUR ---
RECEIVED PATIENT REPORT AT BEDSIDE. PATIENT AWAKE AND ALERT. NO S/S OF DISTRESS. PATIENT WITH 1:1 SITTER. PATIENT CALM AND COOPERATIVE. WILL CONTINUE TO MONITOR
[2018-01-02 08:00] VITALS: BP 89/53
[2018-01-02] MEDS: levETIRAcetam 500 MG TAB PO SCH ×2 (08:42→21:20)
[2018-01-02] MEDS: DIVALPROEX 250 MG TABEC PO SCH (08:42)
[2018-01-02] MEDS: PHENYTOIN 100 MG CAPER PO SCH ×3 (08:42→17:48)
[2018-01-02] MEDS: ESCITALOPRAM 20 MG TAB PO SCH (08:43)
[2018-01-02] MEDS: ENOXAPARIN 40 MG/0.4 ML SYR SUBQ SCH (08:46)
--- NOTE | 2018-01-02 09:45 | NUR ---
PATIENT AMBULATED TO THE RESTROOM TO VOID. NO S/S OF DISTRESS NOTED
[2018-01-02 10:17] LABS: ANION GAP 12.2 (8-16); CARBON DIOXIDE 27.3 mmol/L (21-32); CREATININE 0.6 mg/dL (0.6-1.3); POTASSIUM 3.5 mmol/L (3.5-5.1)
--- NOTE | 2018-01-02 15:42 | NUR ---
PATIENT ASLEEP IN BED. NO S/S OF DISTRESS NOTED. PATIENT WITH 1:1 SITTER
[2018-01-02 16:00] VITALS: BP 95/63
--- NOTE | 2018-01-02 19:29 | NUR ---
PATIENT REPORT GIVEN AT BEDSIDE. PATIENT ENDORSED IN STABLE CONDITION
--- NOTE | 2018-01-02 19:30 | NUR ---
REPORT RECEIVED FROM AM NURSE. PT IN STABLE CONDITION. AAOX3 TO 4. PT HAS FLAT AFFECT BUT IS SLIGHTLY MORE MOTIVATED. IV SITE IS PATENT AND INTACT. ORDER TO DC BUT STILL HAS IV PRN MEDS SO IV SITE IS TKO. SKIN IS WARM, DRY, AND INTACT WITH NO OPEN WOUNDS. BED LOCKED IN LOW POSITION. CALL HUFF IN REACH. 1:1 SITTER.
--- NOTE | 2018-01-02 20:47 | NUR ---
Spoke to Denny FERREIRA , made her aware at this time there are no vacancy at any of the designated facilities ,will continue to make calls for placement and also her aware pt needs to be placed on another [id number] . She stated Once a placement is found a Psych MD will be able to place pt on another hold.
--- NOTE | 2018-01-02 21:20 | NUR ---
PM MEDS GIVEN. PT TOLERATED WELL.
--- NOTE | 2018-01-02 22:55 | NUR ---
PT SLEEPING LEFT LATERAL TOSSING AND TURNING. ATTEMPTING TO SLEEP.
[2018-01-03] VITALS: BP 90/52
--- NOTE | 2018-01-03 01:05 | NUR ---
PT SLEEPING COMFORTABLY IN BED. NO ACUTE DISTRESS NOTED.
--- NOTE | 2018-01-03 02:39 | NUR ---
Still looking for placement,at this time there are no vacancy, will notify charge nurse if placement is found
[2018-01-03] MEDS: LEVOTHYROXINE 0.025 MG TAB PO SCH (05:33)
--- NOTE | 2018-01-03 05:45 | NUR ---
PT UP TO USE RESTROOM. SYNTHROID GIVEN. PT TOLERATED WELL.
--- NOTE | 2018-01-03 07:08 | NUR ---
REPORT GIVEN TO AM NURSE AT BEDSIDE. PT IN STABLE CONDITION.
--- NOTE | 2018-01-03 07:09 | NUR ---
RECEIVED REPORT FROM PUBLIC HEALTH ADVISOR RN. PATIENT IS SLEEPING BUT AROUSABLE TO NAME. HAS NO SIGNS AND SYMPTOMS OF ACUTE DISTRESS NOTED AT THIS TIME. HAS IV TO THE RIGHT FA 22G, SALINE LOCK. SITE IS CLEAN, DRY, PATENT AND INTACT. HAS 1:1 SITTER. DISCUSSED PLAN OF CARE WITH PATIENT. BED IN LOWEST POSITION, SIDE RAILS UP X2, CALL LIGHT WITHIN REACH. WILL CONTINUE TO MONITOR.
[2018-01-03 08:00] VITALS: BP 83/48
[2018-01-03] MEDS: ESCITALOPRAM 20 MG TAB PO SCH (09:25)
[2018-01-03] MEDS: PHENYTOIN 100 MG CAPER PO SCH ×3 (09:25→17:33)
[2018-01-03] MEDS: levETIRAcetam 500 MG TAB PO SCH ×2 (09:25→20:36)
[2018-01-03] MEDS: DIVALPROEX 250 MG TABEC PO SCH (09:25)
[2018-01-03] MEDS: ENOXAPARIN 40 MG/0.4 ML SYR SUBQ SCH (09:28)
--- NOTE | 2018-01-03 10:00 | NUR ---
PATIENT IS RESTING IN BED QUIETLY. NO SIGNS AND SYMPTOMS OF ACUTE DISTRESS NOTED AT THIS TIME. WILL CONTINUE TO MONITOR. 1:1 SITTER
--- NOTE | 2018-01-03 13:15 | NUR ---
RELIEVING THE SITTER FOR LUNCH BREAK. PATIENT RESTING IN BED.
--- NOTE | 2018-01-03 13:45 | NUR ---
SITTER BACK FROM LUNCH BREAK.
--- NOTE | 2018-01-03 15:20 | NUR ---
Clinical review faxed to [facility] [phone]
[2018-01-03 16:00] VITALS: BP 85/49
--- NOTE | 2018-01-03 17:50 | NUR ---
PATIENT LAYING IN BED WITH EYES CLOSED BUT AWAKENS EASILY. NO SIGNS AND SYMPTOMS OF ACUTE DISTRESS NOTED AT THIS TIME.
--- NOTE | 2018-01-03 19:16 | NUR ---
ENDORSED PATIENT TO LIFE EDUCATOR NURSE FOR CONTINUITY OF CARE. PATIENT IN STABLE CONDITION.
--- NOTE | 2018-01-03 19:17 | NUR ---
RECD. RESTING IN BED, AWAKE, ALERT/OX2. RESPIRATION EVEN AND UNLABORED. IV SALINE LOCK AT THE RIGHT FOREARM G22, PATENT AND INTACT. REORIENTED TO HOSPITAL SETTING. PLAN OF CARE FOR THE SHIFT DISCUSSED. JUST LOOKED AT NURSE, WITH A FLAT EFFECT. AGREED TO HAVE HER BLOOD PRESSURE TAKEN, OFFERED HER ARM WHEN TOLD THAT HER BLOOD PRESSURE WILL BE TAKEN. DID NOT EAT HER MEAL, AND SHAKE HEAD WHEN TOLD TO EAT HER DINNER. NO APPEARANCE OF PAIN NOTED 0/10. WILL CONTINUE TO MONITOR PATIENT BEING THE NURSE SITTER FOR THE SHIFT.
--- NOTE | 2018-01-03 20:36 | NUR ---
DUE PO MEDICATION GIVEN, COOPERATIVE.
--- NOTE | 2018-01-03 21:00 | NUR ---
FEED PATIENT WITH PUDDING, ATE 100%. SEEMS THIS PATIENT WHEN TOLD TO EAT ALWAYS REFUSED BUT WHEN SPOON FEED, ABLE TO EAT. SIP A LITTLE WATER FROM THE CUP.
--- NOTE | 2018-01-03 21:30 | NUR ---
SLEEPING COMFORTABLY IN BED.
--- NOTE | 2018-01-03 22:00 | NUR ---
Patient's Plan of Care was discussed and reviewed with IRON PILER: LUCILLE MARADIAGA
--- NOTE | 2018-01-03 22:01 | NUR ---
Spoke to Cari charge nurse , At this time there are no vacancy at any designated facilities.
[2018-01-04] VITALS: BP 90/48
--- NOTE | 2018-01-04 01:30 | NUR ---
STILL SLEEPING COMFORTABLY IN BED.
--- NOTE | 2018-01-04 06:20 | NUR ---
ABLE TO SLEEP WELL. CONDITION REMAIN STABLE. ENDORSED TO HANNA KIM FOR CONTINUITY OF CARE. NEW SITTER NEAR DOOR MONITORING PATIENT.
[2018-01-04] MEDS: LEVOTHYROXINE 0.025 MG TAB PO SCH (06:46)
--- NOTE | 2018-01-04 07:10 | NUR ---
RECEIVED REPORT FROM MANAGER MONEY RN. PATIENT IS SLEEPING BUT AROUSABLE TO NAME. HAS NO SIGNS AND SYMPTOMS OF ACUTE DISTRESS NOTED AT THIS TIME. HAS IV TO THE RIGHT FA 22G, SALINE LOCK. SITE IS CLEAN, DRY, PATENT AND INTACT. HAS 1:1 SITTER. DISCUSSED PLAN OF CARE WITH PATIENT. PATIENT IN SPECIALIZED BED. BED IN LOWEST POSITION, SIDE RAILS UP X2, CALL LIGHT WITHIN REACH. WILL CONTINUE TO MONITOR.
[2018-01-04 08:00] VITALS: BP 87/54
[2018-01-04] MEDS: DIVALPROEX 250 MG TABEC PO SCH (09:32)
[2018-01-04] MEDS: PHENYTOIN 100 MG CAPER PO SCH ×3 (09:33→17:06)
[2018-01-04] MEDS: levETIRAcetam 500 MG TAB PO SCH ×2 (09:34→20:49)
[2018-01-04] MEDS: ESCITALOPRAM 20 MG TAB PO SCH (09:35)
--- NOTE | 2018-01-04 09:35 | NUR ---
MORNING MEDICATIONS ADMINISTERED. PATIENT TOLERATED WELL. WILL CONTINUE TO MONITOR.
[2018-01-04] MEDS: ENOXAPARIN 40 MG/0.4 ML SYR SUBQ SCH (09:40)
--- NOTE | 2018-01-04 12:30 | NUR ---
PATIENT LAYING QUIETLY IN BED. WILL CONTINUE TO MONITOR.
--- NOTE | 2018-01-04 14:00 | NUR ---
HAS EYES CLOSED, NO SIGNS AND SYMPTOMS OF ACUTE DISTRESS NOTED AT THIS TIME. WILL CONTINUE TO MONITOR.
--- NOTE | 2018-01-04 14:13 | NUR ---
CM NOTE CONCURRENT REVIEW FAXED TO [facility] [phone] [place] [phone] [place] [phone].
--- NOTE | 2018-01-04 15:27 | NUR ---
01/04/18 RD FOLLOW UP COMPLETED PLEASE REFER TO NUTRITION PROGRESS NOTE UNDER CARE ACTIVITY FOR ESTIMATED NUTRITIONAL NEEDS. 1. CONTINUE REGULAR DIET AND HEALTHSHAKE SUPPLEMENTATION WITH MEALS TID TOLERATED 2. RECOMMEND ENSURE ENLIVE WITH MEALS TID AND DAILY MVI QD 3. RD TO FOLLOW-UP 2-3 DAYS, HIGH RISK VENKAT PINON RD
[2018-01-04 15:58] VITALS: BP 90/56
--- NOTE | 2018-01-04 16:15 | NUR ---
DENIES PAIN. VITAL SIGNS ARE STABLE. WILL CONTINUE TO MONITOR.
--- NOTE | 2018-01-04 19:10 | NUR ---
ENDORSED PATIENT TO HAND ALTERATIONS SEAMSTRESS RN FOR CONTINUITY OF CARE. PATIENT IN STABLE CONDITION.
--- NOTE | 2018-01-04 19:11 | NUR ---
RECEIVED BEDSIDE REPORT FROM DAY SHIFT NURSE SANDOR RN, PT STABLE, NO DISTRESS NOTED, IV TO R FA 22G PATENT INTACT, SL, PT ON ROOM AIR NO SOB, PT ON 1:1 SITTER, SUICIDAL PRECAUTION, INITIAL ASSESSMENT DONE, ALL SAFETY PRECAUTION MET, 1:1 SITTER BED SIDE, WILL CONTINUE TO MONITOR.
--- NOTE | 2018-01-04 20:30 | NUR ---
TALKED TO PT, PT STATED STILL HAVING SUICIDAL IDEATION, PT STATED HAVING NO FAMILY AND HAVING HER CHILDREN TAKEN AWAY FROM HER BY HER . PT RESTING ON BED NO DISTRESS NOTED, 1:1 SITTER AT ROOM DOOR, WILL CONTINUE TO MONITOR.
--- NOTE | 2018-01-04 20:49 | NUR ---
DUE MEDICATION ADMINISTERED, PT TOLERATED WELL, NO DISTRESS NOTED, CALL LIGHT WITHIN REACH, WILL CONTINUE TO MONITOR. Addendum: 01/04/18 at 2118 by Estela Bell RN 1:1 SITTER AT BEDSIDE
--- NOTE | 2018-01-04 22:05 | NUR ---
PT RESTING IN BED, NO DISTRESS NOTED, PT REQUESTED TO DRINK SOME MILK, MILK GIVEN, PT STABLE, NO DISTRESS NOTED, CALL LIGHT WITHIN REACH, WILL CONTINUE TO MONITOR.
--- NOTE | 2018-01-05 00:08 | NUR ---
CHECKED ON PT, PT SLEEPING, NO DISTRESS NOTED, V/S TAKEN, WITHIN PT BASELINE, PT STABLE, 1:1 SITTER AT BEDSIDE, WILL CONTINUE TO MONITOR.
[2018-01-05 00:09] VITALS: BP 90/47
--- NOTE | 2018-01-05 01:12 | NUR ---
At this time there are no vacancy , unit made aware , will continue to make calls for placement .
--- NOTE | 2018-01-05 02:07 | NUR ---
PT SLEEPING, NO DISTRESS NOTED, 1:1 SITTER AT BEDSIDE, WILL CONTINUE TO MONITOR.
--- NOTE | 2018-01-05 04:10 | NUR ---
PT SLEEPING, QUIETLY IN ROOM, NO DISTRESS NOTED, CALL LIGHT WITHIN REACH, WILL CONTINUE TO MONITOR. Addendum: 01/05/18 at 0411 by Estela Bell RN 1:1 SITTER IN FRONT OF THE ROOM
[2018-01-05] MEDS: LEVOTHYROXINE 0.025 MG TAB PO SCH (05:34)
--- NOTE | 2018-01-05 05:34 | NUR ---
DUE MEDICATION GIVEN, PT TOLERATED WELL, NO DISTRESS NOTED, CALL LIGHT WITHIN REACH, WILL CONTINUE TO MONITOR.
--- NOTE | 2018-01-05 05:39 | NUR ---
No placement was available , will endorsed to next shift to continue to find placement for pt.
--- NOTE | 2018-01-05 07:08 | NUR ---
ENDORSED PT TO DAY SHIFT NURSE MITA RN, PT STABLE, NO DISTRESS NOTED, SLEEPING, 1:1 SITTER AT BEDSIDE.
--- NOTE | 2018-01-05 07:10 | NUR ---
RECEIVED REPORT FROM FELIBERTO RN. PT RESTING IN BED. AAOX4. NO S/S OF ACUTE DISTRESS. PT DENIES PAIN. IV SITE PATENT AND INTACT. 1:1 SITTER PRESENT. WILL CONTINUE TO MONITOR.
[2018-01-05 07:52] VITALS: BP 91/51
[2018-01-05] MEDS: PHENYTOIN 100 MG CAPER PO SCH ×3 (08:12→16:43)
[2018-01-05] MEDS: DIVALPROEX 250 MG TABEC PO SCH (08:12)
[2018-01-05] MEDS: levETIRAcetam 500 MG TAB PO SCH ×2 (08:12→21:09)
[2018-01-05] MEDS: ESCITALOPRAM 20 MG TAB PO SCH (08:12)
--- NOTE | 2018-01-05 08:12 | NUR ---
AM MEDS GIVEN. WILL CONTINUE TO MONITOR.
[2018-01-05] MEDS: ENOXAPARIN 40 MG/0.4 ML SYR SUBQ SCH (08:17)
--- NOTE | 2018-01-05 11:41 | NUR ---
PT SLEEPING IN BED. NO S/S OF ACUTE DISTRESS. PT DENIES PAIN. WILL CONTINUE TO MONITOR.
--- NOTE | 2018-01-05 13:20 | NUR ---
PT IS SLEEPING. REFUSED LUNCH. SITTER IN THE ROOM. WILL CONTINUE TO MONITOR PT.
[2018-01-05 16:00] VITALS: BP 92/48
--- NOTE | 2018-01-05 19:22 | NUR ---
ENDORSED PLAN OF CARE TO NIGHT RN.
--- NOTE | 2018-01-05 19:23 | NUR ---
RECD. RESTING IN BED, AWAKE, A/OX2. JUST LAYING QUIET IN BED, ABLE TO ANSWER SIMPLE QUESTIONS. IV SALINE LOCK AT THE RIGHT FOREARM G22, PATENT AND INTACT. WHEN ASKED IF SHE STILL HAS PLAN OF HURTING SELF, STATED YES. REORIENTED TO HOSPITAL SETTING. PLAN OF CARE FOR THE SHIFT DISCUSSED. JUST NODS HEAD. DENIES PAIN 0/10.
--- NOTE | 2018-01-05 20:00 | NUR ---
ENCOURAGED TO EAT DINNER TRAY AT THE BEDSIDE. BUT SHAKES HEAD WHEN OFFERED FOOD. 1:1 SITTER MONITORING PATIENT AT THE BEDSIDE.
--- NOTE | 2018-01-05 20:35 | NUR ---
RECEIVED REPORT FROM LUCILLE DOUGLASS.PT IS IN STABLE CONDITION.SITTER AT BEDSIDE.WILL CONTINUE MONITORING.
--- NOTE | 2018-01-05 21:09 | NUR ---
DUE PO MEDICATION GIVEN, COOPERATIVE.
--- NOTE | 2018-01-05 22:42 | NUR ---
RESTING COMFORTABLY SLEEPING IN BED, SITTER NEAR DOOR MONITORING PATIENT. ENDORSED TO CHARGE NURSE MAGALI FOR CONTINUITY OF CARE.
[2018-01-06] VITALS: BP 91/54
--- NOTE | 2018-01-06 05:00 | NUR ---
RECEIVED REPORT FROM GUY FERREIRA.PT IS STABLE.NO DISTRESS NOTED NOW.CLEROXY IVPB STARTED.WILL MONITOR PT. Addendum: 01/06/18 at 0744 by Pino Rodriguez RN AMEND THIS NOTE.
[2018-01-06] MEDS: LEVOTHYROXINE 0.025 MG TAB PO SCH (06:33)
--- NOTE | 2018-01-06 07:10 | NUR ---
RECEIVED REPORT FROM CRAFT SUPERINTENDENT NURSE MAGALI. PT ON 1:1 SITTER, IV IN R FA 22 G, WILL CONTINUE TO MONITOR.
--- NOTE | 2018-01-06 07:39 | NUR ---
REPORT GIVEN TO JOSE FRANCISCO RN.PT IS STABLE.
[2018-01-06] MEDS: ESCITALOPRAM 20 MG TAB PO SCH (09:27)
[2018-01-06] MEDS: DIVALPROEX 250 MG TABEC PO SCH (09:27)
[2018-01-06] MEDS: levETIRAcetam 500 MG TAB PO SCH ×2 (09:27→21:16)
[2018-01-06] MEDS: ENOXAPARIN 40 MG/0.4 ML SYR SUBQ SCH (09:28)
[2018-01-06] MEDS: PHENYTOIN 100 MG CAPER PO SCH ×3 (09:28→16:54)
--- NOTE | 2018-01-06 11:04 | NUR ---
D/C IV D/T PT C/O OF PAIN AND NOT BEING PATENT. WILL INSERT NEW IV IF NEEDED.
[2018-01-06 11:22] VITALS: BP 95/55
--- NOTE | 2018-01-06 13:34 | NUR ---
PT RESTING IN BED, NO SIGNS OF DISTRESS, ENCOURAGED TO DRINK WATER AND EAT TOLERATED. WILL CONTINUE WITH 1:1 SITTER.
--- NOTE | 2018-01-06 14:33 | NUR ---
CM NOTE CONCURRENT REVIEW FAXED TO [facility] [phone] [place] [phone] [place] [phone].
[2018-01-06 15:22] VITALS: BP 92/57
--- NOTE | 2018-01-06 16:46 | NUR ---
Photogrammetric Technician Note: Per Neelam from [facility] , they do not have an inquiry for this patient. I faxed inquiry, fax . Addendum: 01/06/18 at 1654 by Federica Morrell SS I told Neelam from [facility] to please contact nursing staff if they can accept patient and/or have questions about patient, I provided her with nurses' station phone number.
--- NOTE | 2018-01-06 17:59 | NUR ---
PT IN BED EATING, NO SIGNS OF DISTRESS, 1:1 SITTER, WILL CONTINUE TO MONITOR.
--- NOTE | 2018-01-06 19:25 | NUR ---
Patient's Plan of Care was discussed and reviewed with ANIMAL NURSERY WORKER: LUCILLE MARADIAGA
--- NOTE | 2018-01-06 19:25 | NUR ---
ENDORSED PT TO GOLF SALES MANAGER NURSE. PT STABLE.
--- NOTE | 2018-01-06 19:26 | NUR ---
RECD REPORT FROM AM NURSE, PATIENT IS RESTING IN BED, AWAKE AND QUIET. A/OX4. RESPIRATION EVEN AND UNLABORED. NO IV LINE. REFUSED ANOTHER LINE TO BE INSERTED. WHEN ASKED IF SHE STILL HAS THOUGHTS OF HURTING SELF, STATED "YES". WHEN ASKED IF SHE STILL HEAR VOICES, STATED SOMETIMES BUT CAN'T UNDERSTAND MUCH, WHEN SHE IS THINKING IT SEEMS LIKE A DREAM. PLAN OF CARE DISCUSSED FOR THE SHIFT. VERBALIZED UNDERSTANDING. DENIES PAIN . Addendum: 01/07/18 at 0653 by Ronda Carmona LVN CORRECTION: A/OX3
--- NOTE | 2018-01-06 20:08 | NUR ---
No update from contacted facilities at this time. will endorse to night club manager to continue looking for placement, as well as continue tomorrow to look for placement.
--- NOTE | 2018-01-06 21:16 | NUR ---
STILL AWAKE, DUE PO MEDICATION GIVEN.
[2018-01-07] VITALS: BP 94/56
--- NOTE | 2018-01-07 | NUR ---
SLEEPING COMFORTABLY IN BED.
--- NOTE | 2018-01-07 04:30 | NUR ---
AMBULATED TO BR TO VOID THREE TIMES, BACK TO BED AFTER VOIDING AND SLEEP. Addendum: 01/07/18 at 0640 by Ronda Carmona LVN CORRECTION: AMBULATED TO BR TO VOID ONLY ONE TIME.
--- NOTE | 2018-01-07 04:45 | NUR ---
NO UPDATE AT THIS TIME
[2018-01-07] MEDS: LEVOTHYROXINE 0.025 MG TAB PO SCH (06:21)
--- NOTE | 2018-01-07 06:37 | NUR ---
CONDITION REMAIN STABLE. ABLE TO SLEEP WELL. WILL ENDORSE TO AM NURSE FOR CONTINUITY OF CARE. NEW SITTER NEAR DOOR MONITORING PATIENT.
--- NOTE | 2018-01-07 07:10 | NUR ---
ENDORSED TO AM NURSE FOR CONTINUITY OF CARE.
--- NOTE | 2018-01-07 07:10 | NUR ---
RECEIVED PT FROM OUTDOOR POWER EQUIPMENT MECHANIC NURSE, PT STABLE, 1:1 SITTER, WILL CONTINUE TO MONITOR.
[2018-01-07 08:09] VITALS: BP 93/56
--- NOTE | 2018-01-07 08:52 | NUR ---
Mutton Puncher Note: Per Yelena from [facility] , they do not have any beds available at this time, stated they might have some discharges today.
[2018-01-07] MEDS: DIVALPROEX 250 MG TABEC PO SCH (09:39)
[2018-01-07] MEDS: levETIRAcetam 500 MG TAB PO SCH ×2 (09:40→21:17)
[2018-01-07] MEDS: ESCITALOPRAM 20 MG TAB PO SCH (09:40)
[2018-01-07] MEDS: PHENYTOIN 100 MG CAPER PO SCH ×3 (09:40→17:49)
[2018-01-07] MEDS: ENOXAPARIN 40 MG/0.4 ML SYR SUBQ SCH (09:41)
--- NOTE | 2018-01-07 10:07 | NUR ---
No updates from contacted facilities at this time. will continue to look for placement and will update unit when new information is available.
--- NOTE | 2018-01-07 12:20 | NUR ---
PT IN BED NO SIGNS OF DISTRESS, 1:1 SITTER WILL CONTINUE TO MONITOR.
--- NOTE | 2018-01-07 12:38 | NUR ---
No Bed vacancies at this time in the following facilities: [facility] s/w [facility] s/w [facility] s/w Yelena [facility] s/w An[facility] s/w [facility] s/w Chiki [facility] Rupinder [place] s/w [facility] s/w Hermelinda Lirianoardino s/w Monalisa Be s/w Suzette Panda [facility] s/w Nandini Lerner [facility] s/w [facility] s/w Shirley. will continue to look for placement throughout shift. will update unit when new info has been received.
--- NOTE | 2018-01-07 13:45 | NUR ---
CM NOTE CONCURRENT REVIEW FAXED TO [facility] [phone] [place] [phone] [place] [phone].
--- NOTE | 2018-01-07 15:08 | NUR ---
PT IN BED NO SIGNS OF DISTRESS, 1:1 SITTER, PO FLUIDS ENCOURAGED WILL CONTINUE TO MONITOR.
[2018-01-07 16:41] VITALS: BP 92/49
--- NOTE | 2018-01-07 16:53 | NUR ---
01/07/18 RD FOLLOW UP COMPLETED PLEASE REFER TO NUTRITION PROGRESS NOTE UNDER CARE ACTIVITY FOR ESTIMATED NUTRITIONAL NEEDS. 1. CONTINUE REGULAR DIET AND HEALTHSHAKE WITH MEALS TID TOLERATED 2. CONTINUE TO ENCOURAGE INCREASING PO INTAKE 3. RD TO FOLLOW-UP 3-5 DAYS, MODERATE RISK VENKAT PINON, RD
--- NOTE | 2018-01-07 19:20 | NUR ---
ENDORSED PT TO TATTOOER NURSE, PT STABLE.
--- NOTE | 2018-01-07 19:21 | NUR ---
VISHAL. RESTING IN BED, AWAKE, Osito/AHSAN4, WITH FORGETFULNESS, CANNOT REMEMBER YET WHERE SHE LIVED BEFORE COMING TO THE HOSPITAL AND NAME OF THE LADY WHO OWNS THE HOUSE WHERE SHE RENT A ROOM. STATED SHE HAS 3 BOYS AND A BUT THE LAST TIME SHE HAD SEEN THEM WAS THREE YEARS AGO. SHE HAVE SOME RELATIVES BUT THEY IGNORE HER, DOES NOT WANT TO ACKNOWLEDGE HER BECAUSE SHE HAS SEIZURE, DEPRESSED BECAUSE SHE HAS NOWHERE T0 GO AND NO FAMILY TO TAKE GOOD CARE OF HER. MORAL ENCOURAGEMENT GIVEN. PLAN OF CARE FOR THE SHIFT DISCUSSED. JUST NODS IN UNDERSTANDING. DENIES PAIN . Addendum: 01/07/18 at 2029 by Ronda Carmona LVN CORRECTION OF ENTRY: [place]/OX3
--- NOTE | 2018-01-07 21:17 | NUR ---
DUE PO MEDICATION GIVEN. TOLERATED WELL.
--- NOTE | 2018-01-07 21:30 | NUR ---
Patient's Plan of Care was discussed and reviewed with PERSONAL LINES INSURANCE AGENT: LUCILLE MARADIAGA
--- NOTE | 2018-01-07 22:00 | NUR ---
COMPLAINT OF PAIN WHEN VOIDING. EXPLAINED THAT IT IS BECAUSE SHE DOES NOT DRINK MUCH WATER AND ALSO DOES NOT EAT, LOWERING HER RESISTANCE. ENCOURAGED TO DRINK MORE FLUIDS, CRANBERRY JUICES GIVEN.
--- NOTE | 2018-01-07 23:30 | NUR ---
WET THE BED, STATED SHE IS OCCASIONALLY INCONTINENT AT NIGHT, TELLS NURSE THAT HER LAST BOYFRIEND SAID TO HER THAT HE WAS ASHAMED OF HER BECAUSE SHE WEAR DIAPER. GIVEN NEW GOWN AND TOWELS TO CLEAN SELF, CHANGED BEDDINGS. WENT BACK TO SLEEP.
[2018-01-08] VITALS: BP 91/56
--- NOTE | 2018-01-08 03:30 | NUR ---
STILL SLEEPING COMFORTABLY IN BED.
--- NOTE | 2018-01-08 05:00 | NUR ---
STILL SLEEPING IN BED, NO APPEARANCE OF DISCOMFORT 0/10. CONDITION REMAIN STABLE. SAFETY MAINTAINED DURING SHIFT. ENDORSED TO CHARGE NURSE FLORENTINO.
--- NOTE | 2018-01-08 06:00 | NUR ---
ASSUMED CONTINUITY OF CARE. NO SIGNS AND SYMPTOMS OF ACUTE DISTRESS NOTED. PT. SLEEPING WELL AND KEEP COMFORTABLE ON BED. SEIZURE AND FALL PRECAUTION APPLIED. CLOSE MONITORED 1:1.
--- NOTE | 2018-01-08 06:00 | NUR ---
REPORT GIVEN TO AM NURSE GENARO. PT STILL SLEEPING.
--- NOTE | 2018-01-08 06:40 | NUR ---
There are currently no bed opennings at this time. I will provide report to day shift.
[2018-01-08] MEDS: LEVOTHYROXINE 0.025 MG TAB PO SCH (06:49)
--- NOTE | 2018-01-08 06:51 | NUR ---
WENT TO BATHROOM WITHOUT ASSISTANCE. TOLERATED WELL. HAD STEADY GAIT AND BALANCE. NO SOB, NOTED. CALM, QUIET AND COOPERATIVE. CONTINUE MONITORING 1:1.
[2018-01-08 08:00] VITALS: BP 96/64
--- NOTE | 2018-01-08 08:00 | NUR ---
Patient's Plan of Care was discussed and reviewed with MILLER WOOD FLOUR: SMOOTH ESPINOZA
[2018-01-08] MEDS: levETIRAcetam 500 MG TAB PO SCH ×2 (08:37→21:13)
[2018-01-08] MEDS: ESCITALOPRAM 20 MG TAB PO SCH (08:37)
[2018-01-08] MEDS: DIVALPROEX 250 MG TABEC PO SCH (08:37)
[2018-01-08] MEDS: PHENYTOIN 100 MG CAPER PO SCH ×3 (08:37→17:18)
[2018-01-08] MEDS: ENOXAPARIN 40 MG/0.4 ML SYR SUBQ SCH (08:38)
[2018-01-08 12:00] VITALS: BP 93/53
--- NOTE | 2018-01-08 12:12 | NUR ---
SERVED LUNCH TRAY. PT. CALM, QUIET AND COOPERATIVE. STARTED TO EAT LUNCH. CONTINUE MONITORING 1:1.
--- NOTE | 2018-01-08 14:08 | NUR ---
No Bed vacancies at the following facilities: [facility] s/w [facility] s/w [facility] s/w [facility] s/w Rebecca [facility] s[facility]w [facility] Gladys [facility] s/w [facility] s/w [facility] s/w Monalisa Nance [facility] s/w [facility] s/w [facility] s/w Aide Dawson s/w Kobe Lerner [facility] s/w [facility] s/w [facility] s/w [facility] s/w [facility] s/w [facility] s/w Laura Saucedo [facility] s/w [facility] Estrellita [facility] s/w Angelica Will continue to look for placement and will update Unit when new information has been found.
[2018-01-08 16:00] VITALS: BP 90/50
--- NOTE | 2018-01-08 17:48 | NUR ---
SERVED DINNER TRAY. PT. CALM, QUIET AND COOPERATIVE. COMMUNICATING APPROPRIATELY.
[2018-01-08 18:00] VITALS: BP 92/56
--- NOTE | 2018-01-08 18:09 | NUR ---
WENT TO BATHROOM WITHOUT ASSISTANCE. TOLERATED WELL. NO C/O PAIN. NO SOB, NOTED.
--- NOTE | 2018-01-08 18:44 | NUR ---
REPORT GIVEN TO CHARGE NURSE MAR LESTER. IN STABLE CONDITION.
--- NOTE | 2018-01-08 19:31 | NUR ---
RECEIVED FROM AM RN IN BED AWAKE AND ALERT. SMILING. NO COMPLAINTS DONE. ON 1:1 SITTER. GOOD AFFECT.
--- NOTE | 2018-01-08 23:26 | NUR ---
SLEEPING . SITTER 1:1. P.O. MEDICATION TAKEN BY PT. NO COMPLAINTS DONE. GOOD AFFECT.
[2018-01-08 23:58] VITALS: BP 90/54
--- NOTE | 2018-01-09 04:54 | NUR ---
SITTER 1:1. SLEEPING WELL.
--- NOTE | 2018-01-09 05:38 | NUR ---
NO UPDATE ON BED PLACEMENT AT THIS TIME. I WILL ENDORSE TO MORNING SHIFT.
--- NOTE | 2018-01-09 06:02 | NUR ---
PT. SLEEPING STILL. NO COMPLAINTS DONE. SITTER 1:1.
[2018-01-09] MEDS: LEVOTHYROXINE 0.025 MG TAB PO SCH (06:18)
--- NOTE | 2018-01-09 07:17 | NUR ---
ASSUMED CONTINUITY OF CARE. NO SIGNS AND SYMPTOMS OF ACUTE DISTRESS NOTED. INITIAL ASSESSMENT DONE. RE-ORIENTED TO EVENTS AND SURROUNDINGS. KEEP COMFORTABLE ON BED. SEIZURE AND FALL PRECAUTION APPLIED. CALL LIGHT WITHIN REACH.
--- NOTE | 2018-01-09 07:23 | NUR ---
ENDORSED TO THE NEXT NURSE FOR CONTINUITY OF CARE. SLEEPING. WITH SITTER 1:1.
[2018-01-09 08:00] VITALS: BP 94/61
--- NOTE | 2018-01-09 08:00 | NUR ---
Patient's Plan of Care was discussed and reviewed with THEATRICAL AGENT: SMOOTH ESPINOZA
[2018-01-09] MEDS: ESCITALOPRAM 20 MG TAB PO SCH (08:33)
[2018-01-09] MEDS: DIVALPROEX 250 MG TABEC PO SCH (08:33)
[2018-01-09] MEDS: levETIRAcetam 500 MG TAB PO SCH ×2 (08:33→20:56)
[2018-01-09] MEDS: PHENYTOIN 100 MG CAPER PO SCH ×3 (08:33→17:12)
[2018-01-09] MEDS: ENOXAPARIN 40 MG/0.4 ML SYR SUBQ SCH (08:36)
--- NOTE | 2018-01-09 08:55 | NUR ---
AMBULATES ON HALLWAY WITH CLOSE MONITORING. TOLERATED WELL. HAD STEADY GAIT AND BALANCE. NO SOB, NOTED.
--- NOTE | 2018-01-09 09:18 | NUR ---
[facility] day shift aware of patient and need for placement, no beds available at this time. Will continue to search for placement through out shift.
[2018-01-09 12:00] VITALS: BP 90/52
--- NOTE | 2018-01-09 12:42 | NUR ---
RESTING ON BED COMFORTABLY. NO DISTRESS NOTICED. CONTINUE TO MONITOR 1:1.
--- NOTE | 2018-01-09 14:26 | NUR ---
AMBULATES ON THE HALLWAY. TOLERATED WELL. CALM AND COOPERATIVE. NO C/O PAIN. STAY WITH PT. DURING AMBULATION.
--- NOTE | 2018-01-09 18:17 | NUR ---
DR. CHAMPION WENT INSIDE PT. ROOM AND SPOKE TO PT. AT BEDSIDE. PT. CALM, AND COOPERATIVE.
--- NOTE | 2018-01-09 19:11 | NUR ---
BEDSIDE REPORT GIVEN TO MICHAEL LESTER. IN STABLE CONDITION. CLOSELY MONITORED 1:1 BY A SITTER.
--- NOTE | 2018-01-09 19:15 | NUR ---
RECEIVED PATIENT AWAKE LYING COMFORTABLY ON BED WITH SITTER IN FRONT OF THE DOOR FOR CLOSE OBSERVATION. SUICIDAL PRECAUTION IMPLEMENTED. EXPLAINED TO PATIENT PLAN OF CARE AND VERBALIZED UNDERSTANDING. WILL CONTINUE TO MONITOR.
--- NOTE | 2018-01-09 21:00 | NUR ---
V/S TAKEN AND RECORDED. MEDICATION GIVEN AND TOLERATED WELL. PATIENT IN 1:1 SITTER FOR CLOSE OBSERVATION. SUICIDAL PRECAUTION IMPLEMENTED.
--- NOTE | 2018-01-09 23:30 | NUR ---
SEEN PATIENT ASLEEP ON BED BUT EASILY AROUSABLE. 1:1 SITTER . BED IN LOW POSITION. NO S/S OF DISTRESS NOTED AT THIS TIME.WILL CONTINUE TO MONITOR.
[2018-01-09 23:56] VITALS: BP 92/52
--- NOTE | 2018-01-10 00:30 | NUR ---
REGIONAL EXCHANGE MECHANIC CALL STATING THAT NO BED AVAILABLE YET. FAXED [phone] PAPER.
--- NOTE | 2018-01-10 01:02 | NUR ---
Notified Cari RN floor nurse , at this time there are no beds available for placement , will continue to call for placement .
--- NOTE | 2018-01-10 01:26 | NUR ---
PATIENT RESTING ON BED COMFORTABLY WITH SITTER CONSTANTLY MONITOR THE PATIENT. BED IN LOW POSITION. NO SIGN OF AGRESSION NOTED AT THIS TIME.WILL CONTINUE TO MONITOR.
--- NOTE | 2018-01-10 02:56 | NUR ---
NO SUICIDAL IDEATION OR THOUGHTS NOTED AT THIS TIME.PATIENT DENIED HEARING VOICES. 1:1 SITTER. WILL CONTINUE TO MONITOR.
--- NOTE | 2018-01-10 04:34 | NUR ---
SEEN PATIENT ASLEEP COMFORTABLY ON BED. 1:1 SITTER. NO SIGN OF SUICIDAL IDEATION NOTED AT THIS TIME. SUICIDAL PRECAUTION IMPLEMENTED. BED IN LOW LOCKED POSITION. WILL CONTINUE TO MONITOR.
--- NOTE | 2018-01-10 05:34 | NUR ---
Was not able to find placement at this time for the pt, will endorsed to AM shift to continue to find placement for pt.
[2018-01-10] MEDS: LEVOTHYROXINE 0.025 MG TAB PO SCH (05:59)
--- NOTE | 2018-01-10 07:10 | NUR ---
ENDORSEMENT GIVEN AT BEDSIDE TO AM SHIFT NURSE FOR CONTINUITY OF CARE. PATIENT IN STABLE CONDITION.
--- NOTE | 2018-01-10 07:15 | NUR ---
RECEIVED PT REPORT FROM VICE INVESTIGATOR RN. PT IS AAOX4. PT STILL HAVING SUICIDAL IDEATION. PT STATED IT'S BECAUSE HER PARENTS , NO ONE CARES ABOUT HER AND SHE HAS NO PLACE TO LIVE. PREVIOUS SI ATTEMPT WAS CUTTING WRIST. ENCOURAGED PT TO EAT. PT DRANK THE MILK. REFUSED IV INSERT. PT HAS 1:1 SITTER. EXPLAINED PLAN OF CARE AND PT VERBALIZED UNDERSTANDING. WILL CONTINUE TO MONITOR.
[2018-01-10 08:00] VITALS: BP 96/56
[2018-01-10] MEDS: DIVALPROEX 250 MG TABEC PO SCH (09:12)
[2018-01-10] MEDS: ESCITALOPRAM 20 MG TAB PO SCH (09:13)
[2018-01-10] MEDS: levETIRAcetam 500 MG TAB PO SCH ×2 (09:13→21:04)
[2018-01-10] MEDS: PHENYTOIN 100 MG CAPER PO SCH ×3 (09:14→16:44)
[2018-01-10] MEDS: ENOXAPARIN 40 MG/0.4 ML SYR SUBQ SCH (09:18)
--- NOTE | 2018-01-10 12:20 | NUR ---
PT STATED HER LAST BM WAS YESTERDAY. ENCOURAGED PT TO EAT, PT HAS DRANK THE MILK SHAKE AND JUICES.
--- NOTE | 2018-01-10 13:44 | NUR ---
Late entry-Packets re-faxed to [facility], [place], and [facility].
--- NOTE | 2018-01-10 14:04 | NUR ---
CM NOTE CONCURRENT REVIEW FAXED TO [facility] [phone] [place] [phone] [place] [phone].
--- NOTE | 2018-01-10 14:15 | NUR ---
CM NOTE INITIAL REVIEW FAXED TO [facility] [phone] [place] [phone]
[2018-01-10 16:00] VITALS: BP 91/50
--- NOTE | 2018-01-10 19:30 | NUR ---
ENDORSED PT TO DENTISTRY PROFESSOR RN. PT IN STABLE CONDITION.
--- NOTE | 2018-01-10 19:31 | NUR ---
RECD. RESTING IN BED, AWAKE, A/OX3. RESPIRATION EVEN AND UNLABORED. ABLE TO REMEMBER THE TRAFFIC COORDINATOR OF THE HOUSE SHE IS RENTING, SARAH IS THE NAME BUT THE LAST NAME SHE DOES NOT KNOW. WORRIED BECAUSE EVERY OF EACH MONTH SARAH IS ABLE TO GET FROM [facility] $350 FOR HER RENT AND FOOD. SHE ALSO RECD A CHECK EVERY TWO WEEKS IN THE AMOUNT OF $129.00 WHICH SHE JOHANSEN HERSELF. NO PLAN OF SUICIDE AT THIS TIME BUT GETS DEPRESS WHEN THINKING THAT NOBODY CARE FOR HER. PLAN OF CARE FOR THE SHIFT DISCUSSED. VERBALIZED UNDERSTANDING. DENIES PAIN 0. 1:1 SITTER NEAR DOOR MONITORING PATIENT.
--- NOTE | 2018-01-10 19:32 | NUR ---
Patient's Plan of Care was discussed and reviewed with RAFAT: LUCILLE
--- NOTE | 2018-01-10 21:05 | NUR ---
AWAKE IN BED, DUE PO MEDICATION GIVEN.
--- NOTE | 2018-01-10 22:00 | NUR ---
SLEEPING COMFORTABLY IN BED.
[2018-01-11] VITALS: BP 90/51
--- NOTE | 2018-01-11 | NUR ---
STILL SLEEPING COMFORTABLY IN BED.
--- NOTE | 2018-01-11 02:28 | NUR ---
No vacancy at this time , will continue making calls for placement .
--- NOTE | 2018-01-11 03:30 | NUR ---
AMBULATED THREE TIMES TO BR TO VOID. 1:1 SITTER STILL MONITORING PATIENT.
--- NOTE | 2018-01-11 06:20 | NUR ---
AWAKE, VERBALIZED SHE WAS NOT ABLE TO SLEPT WELL, KEEP ON TOSSING IN BED, FOR REASON SHE DOES NOT KNOW. ENCOURAGED TO GO BACK TO SLEEP.
[2018-01-11] MEDS: LEVOTHYROXINE 0.025 MG TAB PO SCH (06:44)
--- NOTE | 2018-01-11 06:58 | NUR ---
CONDITION REMAIN STABLE. SAFETY MAINTAINED DURING SHIFT. WILL ENDORSE TO AM NURSE FOR CONTINUITY OF CARE.
--- NOTE | 2018-01-11 07:05 | NUR ---
RECEIVED BEDSIDE REPORT FROM NURSE LUCILLE. PT ASLEEP IN BED, RA, NO SIGNS OF DISTRESS. 1:1 SITTER FOR SAFETY, NO IV ACCESS. V/S TAKEN B/P 88/46. ENCOURAGED TO EAT AND DRINK FLUIDS TOLERATED. ALL OTHER V/S WITHIN NORMAL LIMITS. EXPLAINED PLAN OF CARE AND WILL CONTINUE TO MONITOR. Addendum: 01/11/18 at 0959 by Melina Jones RN REASSESSED BP: 88/45
--- NOTE | 2018-01-11 07:05 | NUR ---
ENDORSED TO AM NURSE FOR CONTINUITY OF CARE.
[2018-01-11 08:00] VITALS: BP 88/46
[2018-01-11] MEDS: PHENYTOIN 100 MG CAPER PO SCH ×3 (09:06→16:05)
[2018-01-11] MEDS: levETIRAcetam 500 MG TAB PO SCH ×2 (09:06→20:28)
[2018-01-11] MEDS: DIVALPROEX 250 MG TABEC PO SCH (09:07)
[2018-01-11] MEDS: ESCITALOPRAM 20 MG TAB PO SCH (09:08)
--- NOTE | 2018-01-11 09:10 | NUR ---
PT SLEEPING ATE SOME BREAKFAST STATED SHE WILL TAKE A NAP AND EAT MORE LATER. DUE MEDICATIONS GIVEN, PT TOLERATED WELL, ENCOURAGED TO DRINK FLUIDS NEEDED. 1:1 SITTER CONTINUED, WILL CONTINUE TO MONITOR.
--- NOTE | 2018-01-11 11:53 | NUR ---
PT SLEEPING IN BED, NO SIGNS OF DISTRESS, CONTINUE WITH 1:1 SITTER, WILL CONTINUE TO MONITOR.
--- NOTE | 2018-01-11 11:59 | NUR ---
Packet faxed to [facility] for review.
--- NOTE | 2018-01-11 12:19 | NUR ---
PT DEMONSTRATES POOR APPETITE, ASKED IF PT WANTS SOMETHING ELSE TO EAT, PT STATES "NO , ITS ALRIGHT". WILL CONTINUE TO MONITOR.
--- NOTE | 2018-01-11 13:15 | NUR ---
CM NOTE CONCURRENT REVIEW FAXED TO [facility] [phone] [place] [phone].
--- NOTE | 2018-01-11 13:51 | NUR ---
PT RESTING IN BED, ASKED IF WANTED SOMETHING ELSE TO EAT. PT STATES "NO THANK YOU". ENCOURAGED TO EAT AND DRINK TOLERATED. WILL CONTINUE TO MONITOR. CONTINUE WITH 1:1 SITTER.
[2018-01-11 15:52] VITALS: BP 90/54
--- NOTE | 2018-01-11 16:30 | NUR ---
PT RESTING IN BED, NO SIGNS OF DISTRESS, WENT UP TO USE BATHROOM X1. AMBULATED TO BATHROOM WITHOUT ASSISTANCE, PT STATED URINATED, NO BM, NO DISCOMFORT. ENCOURAGED TO DRINK FLUIDS TOLERATED. WILL CONTINUE WITH 1:1 SITTER.
--- NOTE | 2018-01-11 17:55 | NUR ---
PT CONTINUES TO DEMONSTRATE POOR APPETITE, OFFERED SOMETHING ELSE TO EAT PT STATED "NO ITS OKAY". ENCOURAGED TO EAT AND DRINK FLUIDS TOLERATED. WILL CONTINUE TO MONITOR.
--- NOTE | 2018-01-11 19:26 | NUR ---
ENDORSED PT TO MULT AU MATIC OPERATOR NURSE. PT STABLE.
--- NOTE | 2018-01-11 19:27 | NUR ---
RECEIVED PT IN STABLE CONDITION FROM AM NURSE. MED SURG PT. ALERT, AWAKE AND ORIENTED X4. WITH 1:1 SITTER DUE TO 51/50 HOLD, DX: PSYCHOSIS. NO C/O ANY DISCOMFORT NOTED. NO IV ACCESS. MD AWARE. BED ON LOW POSITION. WILL CONTINUE TO MONITOR.
--- NOTE | 2018-01-11 20:28 | NUR ---
SCHEDULED MED FOR TONIGHT GIVEN. TOLERATE WELL.
--- NOTE | 2018-01-11 22:00 | NUR ---
PT IS SLEEPING. NO S/S OF AY DISCOMFORT NOTED.
[2018-01-12] VITALS: BP 89/51
--- NOTE | 2018-01-12 00:30 | NUR ---
PATIENT RESTING COMFORTABLY SLEEPING IN BED, RESPIRATION EVEN AND UNLABORED. EASILY AROUSABLE. SAFETY MEASURES ENFORCED, SIDE RAIL WITH PAD, ON SEIZURE PRECAUTION. WILL CONTINUE TO MONITOR BEHAVIOR AND ENSURE SAFETY, BEING THE NURSE AND 1:1 SITTER FOR THIS SHIFT.
--- NOTE | 2018-01-12 01:18 | NUR ---
No vacancy at the following facilities [facility] , [facility] , [facility] , and [facility] at this time , will continue to make calls for placement.
--- NOTE | 2018-01-12 04:00 | NUR ---
STILL SLEEPING COMFORTABLY IN BED.
--- NOTE | 2018-01-12 06:00 | NUR ---
AWAKE, ABLE TO SLEEP WELL. SAFETY MAINTAINED DURING SHIFT. WILL ENDORSED TO AM NURSE FOR CONTINUITY OF CARE.
[2018-01-12] MEDS: LEVOTHYROXINE 0.025 MG TAB PO SCH (06:16)
--- NOTE | 2018-01-12 07:20 | NUR ---
ENDORSED TO AM NURSE FOR CONTINUITY OF CARE.
--- NOTE | 2018-01-12 07:20 | NUR ---
RECEIVED PT FROM NURSE ADKINS, PT STABLE NO SIGNS OF DISTRESS, RA, NO PAIN, V/S TAKEN ALL WITHIN PTS BASELINE, PT REQUESTED TO AMBULATE. ASKED MONITOR SHERI TO WALK WITH PT AROUND UNIT. PT TOLERATED WELL.
[2018-01-12 08:49] VITALS: BP 85/47
--- NOTE | 2018-01-12 09:30 | NUR ---
PT IN BED CONTINUE WITH 1:1 SITTER, NO SIGNS OF DISTRESS, OFFERED SOMETHING ELSE TO EAT, PT STATED "NO ITS FINE", WILL CONTINUE TO MONITOR AND ENCOURAGE FOOD TOLERATED.
[2018-01-12] MEDS: PHENYTOIN 100 MG CAPER PO SCH ×3 (09:51→17:55)
[2018-01-12] MEDS: DIVALPROEX 250 MG TABEC PO SCH (09:51)
[2018-01-12] MEDS: ESCITALOPRAM 20 MG TAB PO SCH (09:52)
[2018-01-12] MEDS: levETIRAcetam 500 MG TAB PO SCH ×2 (09:52→20:44)
--- NOTE | 2018-01-12 11:12 | NUR ---
CM NOTE CONCURRENT REVIEW FAXED TO [facility] [phone] [place] [phone]
--- NOTE | 2018-01-12 11:30 | NUR ---
CALLED DIETARY REQUESTING THEY SEND PT MASH POTATOES, BEEF TIPS, AND HAMBURGER WHEN AVAILABLE. THESE ARE THE FOODS THAT PT LIKES THE MOST. REQUESTED THEY BE OFFERED MUCH POSSIBLE TO INCREASE PTS NUTRITIONAL INTAKE. WILL CONTINUE TO ENSURE PT ATTEMPTS TO DRINK SUPPLEMENT SHAKE MUCH TOLERATED.
--- NOTE | 2018-01-12 11:57 | NUR ---
PT IN BED CONTINUE WITH 1:1 SITTER, NO SIGNS OF DISTRESS, OFFERED ICE WATER, PT TOLERATED WELL, WILL CONTINUE TO MONITOR.
--- NOTE | 2018-01-12 12:19 | NUR ---
CALLED CASE MANAGEMENT SPOKE WITH DOMNIIQUE REGARDING PTS STATUS. PT STATES SHE IS CONCERNED BECAUSE SHE COLLECTS MONEY FROM THE GOVERNMENT MONTHLY AND IS WORRIED SHE WILL NOT RECEIVE HER MONEY FOR THE MONTH OF NOVEMBER. DOMINIQUE STATED SHE WILL SEND A SW TO COME TALK WITH HER.
--- NOTE | 2018-01-12 12:51 | NUR ---
No updates from contacted facilities at this time. [facility] [place] s/[facility] , they are reviewing the patients chart for possible admit at this time.
[2018-01-12 16:00] VITALS: BP 92/59
--- NOTE | 2018-01-12 16:32 | NUR ---
01/12/18 RD FOLLOW UP COMPLETED PLEASE REFER TO NUTRITION PROGRESS NOTE UNDER CARE ACTIVITY FOR ESTIMATED NUTRITIONAL NEEDS. 1. CONTINUE REGULAR DIET AND HEALTHSHAKES WITH MEALS TID TOLERATED 2. CONTINUE TO ENCOURAGE INCREASE PO INTAKE 3. RD TO FOLLOW-UP 3-5 DAYS, MODERATE RISK VENKAT PINON, RD
--- NOTE | 2018-01-12 17:59 | NUR ---
PLEASE DISREGARD PREVIOUS I&O CHARTING.
--- NOTE | 2018-01-12 18:34 | NUR ---
PT IN BED NO SIGNS OF DISTRESS, WILL CONTINUE TO MONITOR. CALL LIGHT WITHIN REACH, CONTINUE WITH 1:1 SITTER.
--- NOTE | 2018-01-12 19:05 | NUR ---
ENDORSED PT TO SUHA ALVARENGA.
--- NOTE | 2018-01-12 19:06 | NUR ---
RECEIVED BEDSIDE REPORT FROM DAY SHIFT NURSE POLO RN, PT STABLE, SLEEPING, NO DISTRESS NOTED, PT HAS NO IV ACCESS AT THIS MOMENT, PT ON ROOM AIR, NO SOB, INITIAL ASSESSMENT DONE, ALL SAFETY PRECAUTION MET, 1:1 SITTER AT BEDSIDE, WILL CONTINUE TO MONITOR.
--- NOTE | 2018-01-12 20:44 | NUR ---
DUE MEDICATION ADMINISTERED, PT TOLERATED WELL, NO DISTRESS NOTED, 1:1 SITTER AT BEDSIDE, WILL CONTINUE TO MONITOR.
[2018-01-12 23:38] VITALS: BP 87/53
--- NOTE | 2018-01-12 23:42 | NUR ---
PT SLEEPING, NO DISTRESS NOTED, V/S TAKEN, WITHIN PT'S BASELINE, PT STABLE, 1:1 SITTER AT BEDSIDE, WILL CONTINUE TO MONITOR.
[2018-01-13] MEDS: LEVOTHYROXINE 0.025 MG TAB PO SCH (05:34)
--- NOTE | 2018-01-13 07:06 | NUR ---
ENDORSED PT TO DAY SHIFT NURSE GENARO DOUGLASS, PT STABLE, NO DISTRESS NOTED, 1:1 SITTER AT BED SIDE.
--- NOTE | 2018-01-13 07:06 | NUR ---
ASSUMED CONTINUITY OF CARE. NO SIGNS AND SYMPTOMS OF ACUTE DISTRESS NOTED. INITIAL ASSESSMENT DONE. CALM, QUIET AND COOPERATIVE. NO SUICIDAL THOUGHTS OBSERVED. KEEP COMFORTABLE ON BED. CLOSELY MONITORED BY VENTURA STRINGER 1:1.
[2018-01-13 08:00] VITALS: BP 94/61
--- NOTE | 2018-01-13 08:53 | NUR ---
At this time there are no updates from faxed facilities. Will continue to follow up.
[2018-01-13] MEDS: DIVALPROEX 250 MG TABEC PO SCH (09:01)
[2018-01-13] MEDS: ESCITALOPRAM 20 MG TAB PO SCH (09:01)
[2018-01-13] MEDS: levETIRAcetam 500 MG TAB PO SCH ×2 (09:01→20:52)
[2018-01-13] MEDS: PHENYTOIN 100 MG CAPER PO SCH ×3 (09:01→17:30)
--- NOTE | 2018-01-13 09:41 | NUR ---
AMBULATES ON HALLWAY WITH ASSISTANCE FROM A SITTER VENTURA BAKER. TOLERATED WELL. HAD STEADY GAIT AND BALANCE.
[2018-01-13 12:00] VITALS: BP 90/53
--- NOTE | 2018-01-13 12:14 | NUR ---
COLEEN MARRUFO CAME AND SPOKE TO PT. AT BEDSIDE. CALM AND COOPERATIVE.
--- NOTE | 2018-01-13 18:00 | NUR ---
EATING DINNER AT THIS TIME. NO ABNORMAL BEHAVIOR OBSERVED. CONTINUE TO MONITOR 1:1.
--- NOTE | 2018-01-13 19:03 | NUR ---
BEDSIDE REPORT GIVEN TO MICHAEL LESTER. IN STABLE CONDITION.
--- NOTE | 2018-01-13 19:05 | NUR ---
RECEIVED PATIENT RESTING ON BED. PATIENT [id number], AMBULATORY. PATIENT STILL IN 1:1 SITTER CONSTANT OBSERVATION FOR PSYCHOSIS. BED IN LOW POSITION. FALL PRECAUTION IMPLEMENTED. WILL CONTINUE TO MONITOR.
--- NOTE | 2018-01-13 21:00 | NUR ---
MEDICATION GIVEN AND PATIENT TOLERATED WELL. PATIENT STATES SHE STILL HEARING VOICES AND STILL HAD SUICIDAL THOUGHTS, NO AGGRESSIVE BEHAVIOR NOTED AT THIS TIME. 1:1 SITTER. SUICIDAL /FALL PRECAUTION IMPLEMENTED. WILL CONTINUE TO MONITOR.
--- NOTE | 2018-01-13 23:00 | NUR ---
SEEN PATIENT ASLEEP COMFORTABLY ON BED. 1:1 SITTER. MAINTAINED CLOSE VISUAL OBSERVATION AT ALL TIMES. NO IMPULSIVE/AGGRESSIVE NOTED AT THIS TIME. SUICIDAL/FALL PRECAUTION IMPLEMENTED. WILL CONTINUE TO MONITOR. Addendum: 01/13/18 at 2335 by Mustapha Anderson RN DUPLICATE
[2018-01-13 23:57] VITALS: BP 93/57
--- NOTE | 2018-01-14 01:18 | NUR ---
SEEN PATIENT RESTING COMFORTABLY ON BED. 1:1 SITTER AND MAINTAINED VISUAL CLOSE OBSERVATION AT ALL TIMES. SUICIDAL/FALL PRECAUTION IMPLEMENTED. WILL CONTINUE TO MONITOR.
--- NOTE | 2018-01-14 03:10 | NUR ---
PATIENT ASLEEP AT THIS TIME. NO S/S OF DISTRESS NOTED. 1:1 SITTER. SUICIDAL/FALL PRECAUTION IMPLEMENTED. WILL CONTINUE TO MONITOR.
--- NOTE | 2018-01-14 05:08 | NUR ---
1:1 SITTER FOR CLOSE VISUAL OBSERVATION AT ALL TIMES. SUICIDAL PRECAUTION IN PLACE. WILL CONTINUE TO MONITOR.
[2018-01-14] MEDS: LEVOTHYROXINE 0.025 MG TAB PO SCH (05:38)
--- NOTE | 2018-01-14 06:56 | NUR ---
ASSUMED CONTINUITY OF CARE. NO SIGNS AND SYMPTOMS OF ACUTE DISTRESS NOTED. INITIAL ASSESSMENT DONE. SLEEPING WELL AT THIS TIME. KEEP SURROUNDINGS SAFE. SEIZURE AND FALL PRECAUTION APPLIED. CLOSELY MONITORED 1:1.
--- NOTE | 2018-01-14 06:56 | NUR ---
ENDORSEMENT GIVEN TO AM SHIFT AT BEDSIDE FOR CONTINUITY OF CARE. PATIENT IN STABLE CONDITION.
[2018-01-14 08:00] VITALS: BP 99/60
--- NOTE | 2018-01-14 08:00 | NUR ---
Patient's Plan of Care was discussed and reviewed with SUPERVISOR COATING: SMOOTH ESPINOZA
[2018-01-14] MEDS: DIVALPROEX 250 MG TABEC PO SCH (08:50)
[2018-01-14] MEDS: levETIRAcetam 500 MG TAB PO SCH ×2 (08:50→20:24)
[2018-01-14] MEDS: ESCITALOPRAM 20 MG TAB PO SCH (08:50)
[2018-01-14] MEDS: PHENYTOIN 100 MG CAPER PO SCH ×3 (08:50→17:16)
--- NOTE | 2018-01-14 10:06 | NUR ---
Report received from night nurse. no updates from contacted facilities will continue to look for placement throughout the shift.
--- NOTE | 2018-01-14 11:20 | NUR ---
WENT TO BATHROOM WITH STEADY GAIT AND BALANCE. NO C/O PAIN. CONTINUE TO MONITOR CLOSELY.
[2018-01-14 12:00] VITALS: BP 94/61
--- NOTE | 2018-01-14 14:02 | NUR ---
CM NOTE CONCURRENT REVIEW FAXED TO [facility] [phone] [place] [phone]
--- NOTE | 2018-01-14 17:55 | NUR ---
PT. WAS ABLE TO CONTACT WITH HER STEPFATHER - MOE AT AND HER SISTER -SCOTT AT . INFORMED CHARGE NURSE MAR LESTER.
--- NOTE | 2018-01-14 19:06 | NUR ---
BEDSIDE REPORT GIVEN TO MICHAEL LESTER. IN STABLE CONDITION. NO SEIZURE ACTIVITIES DURING AM SHIFT.
--- NOTE | 2018-01-14 19:10 | NUR ---
RECEIVED PATIENT AWAKE ON BED IN COMFORTABLE POSITION. 1:1 SITTER FOR CLOSE VISUAL OBSERVATION AT ALL TIMES FOR SAFETY. SUICIDAL/SEIZURES PRECAUTION IMPLEMENTED. EXPLAINED PLAN OF CARE. PATIENT AMBULATORY, AAOX3. REALITY ORIENTATION PROVIDED. ENCOURAGED PATIENT TO VERBALIZED HER FEELINGS. WILL CONTINUE TO MONITOR.
--- NOTE | 2018-01-14 20:30 | NUR ---
MEDICATION GIVEN TOLERATED WELL. V/S TAKEN AND RECORDED. 1:1 SITTER FOR CLOSE VISUAL OBSERVATION AT ALL TIMES. SUICIDAL/FALL/SEIZURE PRECAUTION IMPLEMENTED. NO SIGN OF DISTRESS NOTED AT THIS TIME. WILL CONTINUE TO MONITOR.
[2018-01-15] VITALS: BP 91/55
--- NOTE | 2018-01-15 00:08 | NUR ---
PATIENT ASLEEP ON BED WITH 1:1 SITTER IN CLOSE VISUAL OBSERVATION AT ALL TIMES. NO SIGN OF DISTRESS NOTED. SUICIDAL/FALL/SEIZURES PRECAUTION APPLIED. NO SUICIDAL IDEATION AND AUDITORY HALLUCINATION NOTED AT THIS TIME. WILL CONTINUE TO MONITOR.
--- NOTE | 2018-01-15 02:00 | NUR ---
1:1 SITTER CLOSE VISUAL OBSERVATION AT ALL TIMES. ALL PRECAUTIONARY MEASURES APPLIED.
--- NOTE | 2018-01-15 04:42 | NUR ---
AM CARE PROVIDED. SITTER IN CONSTANT CLOSE VISUAL OBSERVATION. NO SEIZURES NOTED DURING THE NIGHT. NO SUICIDAL IDEATION/THOUGHT EXPRESSED BY THE PATIENT. NO SIGN OF DISTRESS NOTED. PATIENT SLEEPING THROUGH OUT THE NIGHT BUT EASILY AROUSABLE.
[2018-01-15] MEDS: LEVOTHYROXINE 0.025 MG TAB PO SCH (06:10)
--- NOTE | 2018-01-15 07:13 | NUR ---
GAVE REPORT TO AM SHIFT NURSE AT BEDSIDE FOR CONTINUITY OF CARE. 1:1 SITTER. CLOSE VISUAL OBSERVATION APPLIED. PATIENT IN STABLE CONDITION.
--- NOTE | 2018-01-15 07:14 | NUR ---
RECEIVED REPORT FROM TECHNICAL MANAGER CHEMICAL PLANT NURSE AT BEDSIDE FOR CONTINUITY. PATIENT AWAKE ON BED IN COMFORTABLE POSITION. 1:1 SITTER FOR CLOSE VISUAL OBSERVATION AT ALL TIMES FOR SAFETY. SUICIDAL/SEIZURES PRECAUTION IMPLEMENTED. EXPLAINED PLAN OF CARE. PATIENT AMBULATORY, AAOX3. REALITY ORIENTATION PROVIDED. ENCOURAGED PATIENT TO VERBALIZED HER FEELINGS. WILL CONTINUE TO MONITOR PATIENT.
[2018-01-15 08:00] VITALS: BP 91/57
[2018-01-15] MEDS: PHENYTOIN 100 MG CAPER PO SCH ×3 (09:38→16:41)
[2018-01-15] MEDS: DIVALPROEX 250 MG TABEC PO SCH (09:38)
[2018-01-15] MEDS: levETIRAcetam 500 MG TAB PO SCH ×2 (09:38→20:25)
[2018-01-15] MEDS: ESCITALOPRAM 20 MG TAB PO SCH (09:38)
--- NOTE | 2018-01-15 09:38 | NUR ---
ORDERED MEDICATIONS GIVEN. PATIENT TOLERATING THEM WELL. VITAL SIGNS WNL. PATIENT TALKATIVE ABOUT FAMILY MEMBERS AND COOPERATIVE. NO SIGNS OF DISTRESS OR SOB NOTED ON ROOM AIR. PATIENT DENIES PAIN AT THIS TIME. SAFETY PRECAUTION IN PLACE, 1:1 SITTER FOR 5150, WILL CONTINUE TO MONITOR PATIENT.
--- NOTE | 2018-01-15 10:26 | NUR ---
Will continue to look for placement for patient throughout shift. will update unit when new information has been received.
--- NOTE | 2018-01-15 10:45 | NUR ---
PATIENT RESTING IN BED, RESPIRATIONS EVEN AND UNLABORED. NO SIGNS OF DISTRESS OR SOB NOTED ON ROOM AIR. SAFETY PRECAUTION IN PLACE, 1:1 SITTER, WILL CONTINUE TO MONITOR PATIENT.
--- NOTE | 2018-01-15 12:28 | NUR ---
ORDERED MEDICATIONS GIVEN. PATIENT TOLERATING IT WELL. PATIENT SITTING UP IN BED EATING LUNCH. PATIENT COOPERATIVE, POLITE, AND SMILING. NO SUICIDAL IDEATION VERBALIZED AT THIS TIME. SAFETY PRECAUTION IN PLACE, 1:1 SITTER, WILL CONTINUE TO MONITOR PATIENT.
--- NOTE | 2018-01-15 13:24 | NUR ---
PATIENT AMBULATED ON STEADY GAIT WITH RN AND MOTHER AND FAMILY MEMBER BY SIDE. PATIENT IN STABLE CONDITION. PATIENT TOOK ALL HER BELONGINGS WITH HER. Addendum: 01/15/18 at 1326 by Perez Cottrell RN WRONG PATIENT. PATIENT AMBULATED ON STEADY GAIT WITH RN BY HER SIDE ON [facility] FLOOR. NO SIGNS OF DISTRESS OR SOB NOTED ON ROOM AIR. WILL CONTINUE TO MONITOR PATIENT.
--- NOTE | 2018-01-15 15:54 | NUR ---
No updates from contacted facilities. No Bed availability at following hospitals: [facility] s/w [facility] s/w [facility] s/w [facility] s/w Elvia [facility] [place] [facility]w [facility]w Aaliyah [facility] s/w Ck Rene Linda s/w [facility]/w [facility] Martha [facility] s/w [facility] [place] [facility] s[facility]w [facility] s/w [facility] s/w [facility] s/w A[facility]/w [facility] s/w Sharri Valentine Nat[facility] s/w [facility] s/w September [facility] s/w Darius [facility] s/w Sabiha will continue to assist in finding placement.
--- NOTE | 2018-01-15 16:00 | NUR ---
PATIENT SHOWERING, 1:1 SITTER OUTSIDE. WILL CONTINUE TO MONITOR PATIENT.
[2018-01-15 16:15] VITALS: BP 95/62
--- NOTE | 2018-01-15 16:31 | NUR ---
ORDERED MEDICATIONS GIVEN. PATIENT TOLERATING IT WELL. PATIENT SITTING UP IN BED AFTER SHOWER. PATIENT COOPERATIVE, POLITE, AND SMILING. NO SUICIDAL IDEATION VERBALIZED AT THIS TIME. SAFETY PRECAUTION IN PLACE, 1:1 SITTER, WILL CONTINUE TO MONITOR PATIENT
--- NOTE | 2018-01-15 18:57 | NUR ---
REPORT GIVEN TO COMMERCIAL REAL ESTATE AGENT AT BEDSIDE FOR CONTINUITY OF CARE. PATIENT IN STABLE CONDITION. PATIENT RESTING IN BED.
--- NOTE | 2018-01-15 18:58 | NUR ---
RECD. RESTING IN BED, AWAKE, A/OX4. RESPIRATION EVEN AND UNLABORED. WHEN INQUIRED HOW SHE IS TODAY, IF SHE HAS PLAN OF HURTING HERSELF, STATED NONE BUT THERE ARE TIMES DURING THE DAY WHEN SHE THINKS SHE IS GOING CRAZY WHEN SHE THINKS WHERE SHE WILL GO AND WHY HER FAMILY SEEMS NOT TO CARE FOR HER. PLAN OF CARE FOR THE SHIFT DISCUSSED. VERBALIZED UNDERSTANDING. DENIES PAIN 0/10.
--- NOTE | 2018-01-15 20:25 | NUR ---
DUE PO MEDICATION FOR THE NIGHT GIVEN.
--- NOTE | 2018-01-15 20:45 | NUR ---
AMBULATED TWICE TO GO TO BR AND VOID.
--- NOTE | 2018-01-15 21:30 | NUR ---
SLEEPING COMFORTABLY IN BED.
[2018-01-16] VITALS: BP 94/63
--- NOTE | 2018-01-16 02:37 | NUR ---
Patient's Plan of Care was discussed and reviewed with ELECTRICAL MANUFACTURING TECHNICIAN: LUCILLE MARADIAGA
--- NOTE | 2018-01-16 04:55 | NUR ---
STILL SLEEPING COMFORTABLY IN BED.
--- NOTE | 2018-01-16 05:15 | NUR ---
WENT TO BR TO VOID, BACK TO BED AFTER VOIDING AND SLEEP AGAIN.
--- NOTE | 2018-01-16 06:15 | NUR ---
AWAKE, REQUESTED FOR TOOTHBRUSH. CONDITION REMAIN STABLE. WILL ENDORSED TO AM NURSE FOR CONTINUITY OF CARE.
[2018-01-16] MEDS: LEVOTHYROXINE 0.025 MG TAB PO SCH (06:31)
--- NOTE | 2018-01-16 07:00 | NUR ---
RECEIVED REPORT FROM OUTBOARD TECHNICIAN NURSE AT BEDSIDE FOR CONTINUITY. PATIENT AWAKE ON BED IN COMFORTABLE POSITION. 1:1 SITTER FOR CLOSE VISUAL OBSERVATION AT ALL TIMES FOR SAFETY. SUICIDAL/SEIZURES PRECAUTION IMPLEMENTED. EXPLAINED PLAN OF CARE. PATIENT AMBULATORY, AAOX3. REALITY ORIENTATION PROVIDED. ENCOURAGED PATIENT TO VERBALIZED HER FEELINGS. PATIENT STATED THAT SHE FEELS BETTER AND DOES NOT WANT TO HURT HERSELF BUT SHE IS SAD BECAUSE HER FAMILY DOES NOT SEEM TO CARE FOR HER. WILL CONTINUE TO MONITOR PATIENT.
--- NOTE | 2018-01-16 07:00 | NUR ---
AWAKE, RESTING IN BED, ENDORSED TO AM NURSE FOR CONTINUITY OF CARE.
[2018-01-16 07:39] VITALS: BP 95/67
--- NOTE | 2018-01-16 07:45 | NUR ---
PATIENT SAT UP IN BED EATING BREAKFAST. DID NOT HAVE AN APPETITE FOR THE FOOD, EDUCATED PATIENT ON HER NUTRITIONAL NEEDS, HELPED PATIENT FILL OUT TOMORROW'S MENU, PATIENT VERBALIZED UNDERSTANDING. PATIENT THEN WENT TO TO VOID, BACK TO BED AFTER VOIDING AND NOW RESTING IN BED.
[2018-01-16] MEDS: PHENYTOIN 100 MG CAPER PO SCH ×3 (08:07→17:44)
[2018-01-16] MEDS: DIVALPROEX 250 MG TABEC PO SCH (08:07)
[2018-01-16] MEDS: levETIRAcetam 500 MG TAB PO SCH ×2 (08:08→20:50)
[2018-01-16] MEDS: ESCITALOPRAM 20 MG TAB PO SCH (08:08)
--- NOTE | 2018-01-16 09:37 | NUR ---
AMBULATED TO BATHROOM TO VOID. BACK IN BED AGAIN. RESTING, NO SIGNS OF DISTRESS OR SOB NOTED ON ROOM AIR. WILL CONTINUE TO MONITOR.
--- NOTE | 2018-01-16 10:08 | NUR ---
OFFERED PATIENT JUICE OR JELLO SINCE PATIENT DID NOT EAT HER ENTIRE BREAKFAST. PATIENT REFUSED. 15 MINUTES LATER, ASKED FOR JELLO. JELLO GIVEN. PATIENT ATE IT AND WENT BACK TO RESTING IN BED. NO SIGN OF DISTRESS NOTED ON ROOM AIR. 1:[address], WILL CONTINUE TO MONITOR PATIENT.
--- NOTE | 2018-01-16 11:59 | NUR ---
ASKED IF PATIENT WANTED TO SHOWER TODAY. SHE STATED "NO, THANK YOU" BECAUSE SHE ALREADY SHOWERED YESTERDAY. SHE FEELS "OK" TODAY. 1:[address], WILL CONTINUE TO MONITOR PATIENT.
--- NOTE | 2018-01-16 12:18 | NUR ---
PATIENT FINISHED EATING HER LUNCH, ORDERED MEDICATIONS GIVEN. PATIENT TOLERATED IT WELL. PATIENT NOW RESTING IN BED, NO SIGNS OF DISTRESS OR SOB NOTED ON ROOM AIR. PATIENT COOPERATIVE, POLITE, AND SMILING. 1:[address], WILL CONTINUE TO MONITOR PATIENT.
--- NOTE | 2018-01-16 13:36 | NUR ---
PATIENT SLEEPING IN BED, NO SIGNS OF DISTRESS OR SOB NOTED ON ROOM AIR. RESPIRATIONS EVEN AND UNLABORED. SAFETY PRECAUTION IN PLACE WITH 1:1 SITTER. WILL CONTINUE TO MONITOR PATIENT.
--- NOTE | 2018-01-16 14:44 | NUR ---
PATIENT AMBULATED ON STEADY GAIT WITH STAFF AROUND THE MED SURG FLOOR. WILL CONTINUE TO MONITOR PATIENT.
--- NOTE | 2018-01-16 15:34 | NUR ---
DR BARRERA IN TO SEE THE PATIENT. WILL WAIT FOR HIS ORDERS.
[2018-01-16 16:00] VITALS: BP 91/59
--- NOTE | 2018-01-16 16:42 | NUR ---
PATIENT REQUESTED PHONE TO CALL HERO ROSA AT [phone]. PHONE GIVEN. PATIENT CALLED AND SPOKE TO HERO. Addendum: 01/16/18 at 1654 by Perez Cottrell RN PER PATIENT, PATIENT REQUESTED TO STAY WITH HIM AND SHE WOULD PAY RENT, HE STATED THAT HIS HOME PER THE [facility], CANNOT HAVE MORE THAN 4 PEOPLE. PATIENT ALSO REQUESTED FOR HER AUNT'S PHONE NUMBER SO SHE COULD CALL AND TALK TO HER COUSIN TO FIND POSSIBLE PLACEMENT WITH HERO ROSA DID NOT HAVE THE INFORMATION AT THIS TIME. AFTER 4 ATTEMPTS PHONE CALL AND SPEAKING TO HERO, RN STATED THAT PATIENT CAN TRY AGAIN TOMORROW. PATIENT VERBALIZED UNDERSTANDING.
--- NOTE | 2018-01-16 17:44 | NUR ---
PATIENT FINISHED EATING HER DINNER, ORDERED MEDICATIONS GIVEN. PATIENT TOLERATED IT WELL. PATIENT NOW RESTING IN BED, NO SIGNS OF DISTRESS OR SOB NOTED ON ROOM AIR. PATIENT COOPERATIVE, POLITE, AND SMILING. 1:[address], WILL CONTINUE TO MONITOR PATIENT.
--- NOTE | 2018-01-16 18:53 | NUR ---
REPORT GIVEN TO SPECIAL SERVICE REPRESENTATIVE NURSE AT BEDSIDE FOR CONTINUITY OF CARE. PATIENT IN STABLE CONDITION.
--- NOTE | 2018-01-16 18:54 | NUR ---
RECD. RESTING IN BED, AWAKE, A/OX4. RESPIRATION EVEN AND UNLABORED. SEEMS WORRIED, UNABLE TO TALKED MUCH WITH STEP FATHER TODAY, KEEP ON HANGING UP. ADVISED NOT TO THINK MUCH ABOUT IT OR ELSE SHE MIGHT GET MORE SICK. PLAN OF CARE DISCUSSED. VERBALIZED UNDERSTANDING. DENIES PAIN 0/10. WILL CONTINUE TO MONITOR FOR SAFETY BEING THE NURSE SITTER FOR THIS SHIFT.
--- NOTE | 2018-01-16 19:15 | NUR ---
ATE ONLY POTATOES FOR DINNER, OFFERED SANDWICH BUT REFUSED.
--- NOTE | 2018-01-16 20:00 | NUR ---
AWAKE IN BED, STILL WITH THE WORRIED LOOK, WHEN ASKED WHY STATED SHE IS THINKING IF SHE CAN STILL GO BACK TO THE HOUSE WHERE SHE RENTED BEFORE COMING TO THE HOSPITAL. ORIENTED ON THE PLAN TO TRANSFER TO A FACILITY WHERE SHE WILL HAVE CONTINUITY OF CARE.
--- NOTE | 2018-01-16 20:50 | NUR ---
DUE PO MEDICATION GIVEN.
--- NOTE | 2018-01-16 21:00 | NUR ---
SLEEPING COMFORTABLY IN BED.
[2018-01-17] VITALS: BP 100/54
--- NOTE | 2018-01-17 | NUR ---
STILL SLEEPING COMFORTABLY IN BED.
--- NOTE | 2018-01-17 05:32 | NUR ---
NO placement was found , However morning shift will be notified to continue to look for placement .
[2018-01-17] MEDS: LEVOTHYROXINE 0.025 MG TAB PO SCH (06:07)
--- NOTE | 2018-01-17 06:20 | NUR ---
SHARONDA TO SLEPT WELL. CONDITION REMAIN STABLE. NEW SITTER MONITORING PATIENT AT THE DOOR. SAFETY MAINTAINED DURING SHIFT. WILL ENDORSE TO AM NURSE FOR CONTINUITY OF CARE.
--- NOTE | 2018-01-17 07:06 | NUR ---
ENDORSED TO AM NURSE FOR CONTINUITY OF CARE.
--- NOTE | 2018-01-17 07:06 | NUR ---
RECEIVED REPORT FROM NIGHTSHIFT NURSE AT BEDSIDE. PATIENT IS ASLEEP AT THIS TIME IN SEMI-GARCIA POSITION. PATIENT ALERT AND ORIENTED X4. PATIENT ADMITS TO AUDITORY HALLUCINATIONS AT THIS TIME. REORIENTED PATIENT TO SITUATION. NO DISTRESS NOTED. NO PAIN NOTED. PATIENT HAS 1:1 SITTER AT BEDSIDE. WILL CONTINUE TO MONITOR PATIENT.
[2018-01-17 08:00] VITALS: BP 90/58
[2018-01-17] MEDS: DIVALPROEX 250 MG TABEC PO SCH (08:34)
[2018-01-17] MEDS: levETIRAcetam 500 MG TAB PO SCH ×2 (08:34→20:44)
[2018-01-17] MEDS: ESCITALOPRAM 20 MG TAB PO SCH (08:34)
[2018-01-17] MEDS: PHENYTOIN 100 MG CAPER PO SCH ×3 (08:34→17:11)
--- NOTE | 2018-01-17 08:37 | NUR ---
PATIENT TOOK AM MEDICATIONS. PATIENT TOLERATED WELL. WILL CONTINUE TO MONITOR PATIENT.
--- NOTE | 2018-01-17 11:01 | NUR ---
No update from contacted facilities at this time. will continue to look fro placement throughout shift.
--- NOTE | 2018-01-17 14:07 | NUR ---
CM NOTE CONCURRENT REVIEW FAXED TO [facility] [phone] JAMES [phone]
--- NOTE | 2018-01-17 15:41 | NUR ---
01/17/18 RD FOLLOW UP COMPLETED PLEASE REFER TO NUTRITION PROGRESS NOTE UNDER CARE ACTIVITY FOR ESTIMATED NUTRITIONAL NEEDS. 1. CONTINUE REGULAR DIET TOLERATED 2. CONTINUE TO ENCOURAGE PO INTAKE 3. RD TO FOLLOW-UP 5-7 DAYS, LOW RISK VENKAT PINON, RD
[2018-01-17 16:00] VITALS: BP 92/61
--- NOTE | 2018-01-17 19:30 | NUR ---
RECEIVED REPORT FROM DAY SHIFT NURSE KARYN-HANNA AT BEDSIDE. PATIENT IS RESTING IN BED AT THIS TIME IN SEMI-GARCIA POSITION. PATIENT ALERT AND ORIENTED X4. ON ROOM AIR, NO IV ACCESS. DISCUSSED PLAN OF CARE AND PT VERBALIZED UNDERSTANDING. NO S/S OF RESPIRATORY DISTRESS OR DISCOMFORT NOTED AT THIS TIME. PATIENT HAS 1:1 SITTER AT BEDSIDE. WILL CONTINUE TO MONITOR PATIENT.
[2018-01-17 20:00] VITALS: BP 91/58
--- NOTE | 2018-01-17 20:00 | NUR ---
VITAL SIGNS TAKEN AND TOLERATED WELL. NO S/S OF RESPIRATORY DISTRESS OR DISCOMFORT AT THIS TIME. WILL CONTINUE TO MONITOR.
--- NOTE | 2018-01-17 22:00 | NUR ---
PT SLEEPING AT THIS TIME. NO S/S OF RESPIRATORY DISTRESS OR DISCOMFORT AT THIS TIME. WILL CONTINUE TO MONITOR.
--- NOTE | 2018-01-18 | NUR ---
VITAL SIGNS TAKEN AND TOLERATED WELL. NO S/S OF RESPIRATORY DISTRESS OR DISCOMFORT AT THIS TIME. WILL CONTINUE TO MONITOR.
--- NOTE | 2018-01-18 02:00 | NUR ---
PT SLEEPING AT THIS TIME. NO S/S OF RESPIRATORY DISTRESS OR DISCOMFORT AT THIS TIME. WILL CONTINUE TO MONITOR.
--- NOTE | 2018-01-18 03:07 | NUR ---
Still no beds are available at this time , will continue to make calls for placement and notify charge nurse if placement is found.
--- NOTE | 2018-01-18 04:00 | NUR ---
PT SLEEPING AT THIS TIME. NO S/S OF RESPIRATORY DISTRESS OR DISCOMFORT AT THIS TIME. WILL CONTINUE TO MONITOR.
[2018-01-18] MEDS: LEVOTHYROXINE 0.025 MG TAB PO SCH (05:59)
--- NOTE | 2018-01-18 06:00 | NUR ---
SCHEDULED MEDICATION SYNTHROID GIVEN AND TOLERATED WELL. NO S/S OF RESPIRATORY DISTRESS OR DISCOMFORT NOTED AT THIS TIME. WILL CONTINUE TO MONITOR.
--- NOTE | 2018-01-18 06:04 | NUR ---
ENDORSED PT CARE TO DAY SHIFT NURSE JUSTIN FOR CONTINUITY OF CARE.
--- NOTE | 2018-01-18 06:05 | NUR ---
ASSUMED CONTINUITY OF CARE. NO SIGNS AND SYMPTOMS OF ACUTE DISTRESS NOTICED. INITIAL ASSESSMENT DONE. SLEEPING WELL AT THIS TIME. KEEP SURROUNDINGS SAFE. SEIZURE AND FALL PRECAUTION APPLIED. CLOSELY MONITOR 1:1.
[2018-01-18 08:00] VITALS: BP 109/63
--- NOTE | 2018-01-18 08:31 | NUR ---
AMBULATES ON HALLWAY. TOLERATED WELL. HAD STEADY GAIT AND BALANCE. NO SOB, NOTED. CONTINUE TO MONITOR PT. CLOSELY FOR SUICIDAL PREVENTION.
[2018-01-18] MEDS: PHENYTOIN 100 MG CAPER PO SCH ×3 (08:53→17:22)
[2018-01-18] MEDS: ESCITALOPRAM 20 MG TAB PO SCH (08:53)
[2018-01-18] MEDS: DIVALPROEX 250 MG TABEC PO SCH (08:53)
[2018-01-18] MEDS: levETIRAcetam 500 MG TAB PO SCH ×2 (08:53→20:03)
--- NOTE | 2018-01-18 08:55 | NUR ---
DR. BARRERA CAME AND SPOKE TO PT. AT BEDSIDE. PT. CALM AND COOPERATIVE. NO UNTOWARD BEHAVIOR SEEN.
[2018-01-18 12:00] VITALS: BP 97/64
--- NOTE | 2018-01-18 13:30 | NUR ---
No beds/updates from contacted/faxed facilities. Will continue to follow up.
--- NOTE | 2018-01-18 13:46 | NUR ---
AMBULATES ON HALLWAY. NO C/O PAIN. NO SOB, NOTED. KEEP FREE FROM INJURY AND CONTINUE TO MONITOR CLOSELY.
--- NOTE | 2018-01-18 14:02 | NUR ---
BOAT PULLER HOWIE CAME AND SPOKE TO PT. AT BEDSIDE. PT. CALM AND COOPERATIVE.
--- NOTE | 2018-01-18 14:09 | NUR ---
CM NOTE CONCURRENT REVIEW FAXED TO [facility] [phone] JAMES [phone]
--- NOTE | 2018-01-18 15:16 | NUR ---
FLUE LINING DIPPER -SUSANNA DONE CONVERSATION WITH PT.. CONTINUE TO MONITOR PT. CLOSELY 1:1.
--- NOTE | 2018-01-18 17:54 | NUR ---
DONE EATING DINNER AT THIS TIME. CONSUMED 80% OF FOOD. KEEP COMFORTABLE ON BED.
--- NOTE | 2018-01-18 18:20 | NUR ---
REPORT GIVEN TO CHARGE NURSE DOYLE LESTER. IN STABLE CONDITION. CLOSELY MONITORED BY A SITTER YARELIS RUSH.
--- NOTE | 2018-01-18 19:20 | NUR ---
RECEIVED PT REPORT AT BEDSIDE. PT IN STABLE CONDITION. PT HAS NO IV ACCESS. SKIN IS INTACT. PT ON RA. NO C/O PAIN AT THIS TIME. PT IS ON 5150 HOLD WITH SITTER IN ROOM. BED IS LOCKED, LOWEST POSITION AND SIDE RAILS UP X2. WILL CONTINUE TO MONITOR PT.
--- NOTE | 2018-01-18 20:04 | NUR ---
ADMINISTERED MEDICATION TO PT PER MD ORDER. PT TOLERATED WELL. WILL CONTINUE TO MONITOR.
--- NOTE | 2018-01-18 22:36 | NUR ---
PT ASLEEP IN BED. SITTER IN ROOM. NO S/SX OF DISTRESS. WILL CONTINUE TO MONITOR.
[2018-01-19] VITALS: BP 90/55
--- NOTE | 2018-01-19 00:52 | NUR ---
NO CHANGE IN CONDITION. SITTER IN PT ROOM. WILL CONTINUE TO MONITOR.
--- NOTE | 2018-01-19 02:46 | NUR ---
PT IS SLEEPING. NO SIGNS OF DISTRESS. SITTER IS IN ROOM. WILL CONTINUE TO MONITOR PT.
--- NOTE | 2018-01-19 04:19 | NUR ---
Still no beds available for placement , will continue to call for beds.
--- NOTE | 2018-01-19 04:55 | NUR ---
NO CHANGE IN CONDITION. 1:1 SITTER IN ROOM. WILL CONTINUE TO MONITOR PT.
[2018-01-19] MEDS: LEVOTHYROXINE 0.025 MG TAB PO SCH (06:13)
--- NOTE | 2018-01-19 06:15 | NUR ---
ADMINISTERED SCHEDULED MEDICATION. PT TOLERATED WELL. SITTER IN ROOM. WILL CONTINUE TO MONITOR PT.
--- NOTE | 2018-01-19 07:15 | NUR ---
ENDORSED PT TO DAY SHIFT NURSE FOR CONTINUITY OF CARE. PT IN STABLE CONDITION.
--- NOTE | 2018-01-19 07:16 | NUR ---
RECEIVED REPORT FROM CATEGORY MANAGER RN. PATIENT IS AAOX4, HAS NO SIGNS AND SYMPTOMS OF ACUTE DISTRESS NOTED AT THIS TIME. HAS NO IV ACCESS. IS ON 1:1 SITTER. DISCUSSED PLAN OF CARE WITH PATIENT AND SHE VERBALIZED UNDERSTANDING. BED IN LOWEST POSITION, SIDE RAILS UP X2. WILL CONTINUE TO MONITOR.
[2018-01-19 08:00] VITALS: BP 86/53
[2018-01-19] MEDS: levETIRAcetam 500 MG TAB PO SCH ×2 (09:54→21:11)
[2018-01-19] MEDS: PHENYTOIN 100 MG CAPER PO SCH ×3 (09:54→17:23)
[2018-01-19] MEDS: DIVALPROEX 250 MG TABEC PO SCH (09:54)
[2018-01-19] MEDS: ESCITALOPRAM 20 MG TAB PO SCH (09:54)
--- NOTE | 2018-01-19 09:54 | NUR ---
MORNING MEDICATIONS ADMINISTERED. PATIENT TOLERATED WELL.
--- NOTE | 2018-01-19 11:30 | NUR ---
RESTING IN BED. HAS NO SIGNS AND SYMPTOMS OF ACUTE DISTRESS NOTED AT THIS TIME.
--- NOTE | 2018-01-19 13:30 | NUR ---
PATIENT IS RELAXING IN BED WITH EYES OPEN. 1:1 SITTER.
[2018-01-19 16:00] VITALS: BP 95/58
--- NOTE | 2018-01-19 17:40 | NUR ---
AFTERNOON MEDICATION ADMINISTERED. PATIENT TOLERATED WELL.
--- NOTE | 2018-01-19 18:30 | NUR ---
RECD PATIENT RESTING IN BED, AWAKE, A/OX3. RESPIRATION EVEN AND UNLABORED. STILL WORRIES WHERE WILL SHE GO, NOBODY CARES FOR HER, MORAL ENCOURAGEMENT GIVEN. PLAN OF CARE DISCUSSED. VERBALIZED UNDERSTANDING. WILL CONTINUE TO MONITOR PATIENT FOR SAFETY BEING THE NURSE AND SITTER FOR THIS SHIFT.
--- NOTE | 2018-01-19 19:19 | NUR ---
ENDORSED PATIENT TO GROUP CONTROLLER NURSE FOR CONTINUITY OF CARE. PATIENT IN STABLE CONDITION.
--- NOTE | 2018-01-19 19:20 | NUR ---
STILL RESTING IN BED, PLEASANT AND ALWAYS SMILE WHENEVER STAFF GREETS HER.
--- NOTE | 2018-01-19 21:11 | NUR ---
DUE PO MEDICATION GIVEN.
--- NOTE | 2018-01-19 22:10 | NUR ---
AMBULATED TO TO VOID. BACK TO BED AFTER VOIDING.
--- NOTE | 2018-01-19 22:20 | NUR ---
SLEEPING COMFORTABLY IN BED.
[2018-01-20] VITALS: BP 95/64
--- NOTE | 2018-01-20 | NUR ---
SLEEPING COMFORTABLY IN BED.
--- NOTE | 2018-01-20 03:26 | NUR ---
No update from contacted facilities at this time. will continue to look for placement throughout shift. will endorse to morning shift to continue looking for placement as well.
[2018-01-20] MEDS: LEVOTHYROXINE 0.025 MG TAB PO SCH (06:23)
--- NOTE | 2018-01-20 06:23 | NUR ---
ABLE TO SLEPT WELL. DUE PO MEDICATION GIVEN.
--- NOTE | 2018-01-20 06:35 | NUR ---
CONDITION REMAIN STABLE. SAFETY MAINTAINED, NO SUICIDAL IDEATION NOTED. NEW SITTER MONITORING PATIENT. WILL ENDORSE TO AM NURSE FOR CONTINUITY OF CARE.
--- NOTE | 2018-01-20 07:05 | NUR ---
NEW SITTER MONITORING PATIENT, ENDORSED TO AM NURSE FOR CONTINUITY OF CARE.
--- NOTE | 2018-01-20 07:06 | NUR ---
RECEIVED REPORT FROM CLERICAL MANAGER RN. PATIENT IS AAOX4, HAS NO SIGNS AND SYMPTOMS OF ACUTE DISTRESS NOTED AT THIS TIME. HAS NO IV ACCESS. IS ON 1:1 SITTER. DISCUSSED PLAN OF CARE WITH PATIENT AND SHE VERBALIZED UNDERSTANDING. BED IN LOWEST POSITION, SIDE RAILS UP X2. WILL CONTINUE TO MONITOR.
[2018-01-20 08:00] VITALS: BP 97/57
[2018-01-20] MEDS: ESCITALOPRAM 20 MG TAB PO SCH (09:08)
[2018-01-20] MEDS: DIVALPROEX 250 MG TABEC PO SCH (09:08)
[2018-01-20] MEDS: PHENYTOIN 100 MG CAPER PO SCH ×3 (09:08→17:50)
[2018-01-20] MEDS: levETIRAcetam 500 MG TAB PO SCH ×2 (09:08→20:29)
--- NOTE | 2018-01-20 09:50 | NUR ---
PATIENT QUIET AND RESTING IN BED. NO S/SX OF DISTRESS.
--- NOTE | 2018-01-20 12:00 | NUR ---
RESTING IN BED.
[2018-01-20 16:00] VITALS: BP 90/54
--- NOTE | 2018-01-20 19:00 | NUR ---
ENDORSED PATIENT TO TAPPER OPERATOR RN FOR CONTINUITY OF CARE. PATIENT IN STABLE CONDITION.
--- NOTE | 2018-01-20 19:30 | NUR ---
RECEIVED PT FROM SANDOR FERREIRA REPORT GIVEN AT BED SIDE, PT MARSHALLESE SPEAKER AAOX4 AMBULATORY , 7230 NOT DISTRESS NOTED AT THIS TIME , NO IV ACCESS, RESTING ON BED, PT VERBALIZE TO FEEL BETTER DENIES ANY HALLUCINATION AND DENIES ANY SUICIDAL IDEATION . WAITING FOR FOR A PSYCH PLACEMENT
[2018-01-20 19:56] VITALS: BP 90/57
--- NOTE | 2018-01-20 21:30 | NUR ---
PT RESTING ON BED SITTER 1:1, NOT SIGNS OF DISTRESS NOTED PT GETTING SLEEP
--- NOTE | 2018-01-20 23:26 | NUR ---
PT AMBULATES TO THE RESTROOM VOIDING WELL, PT DID NOT COMPLAINT O ANY DISCOMFORT, DENIES TO HEAR VOICES LIKE BEFORE
[2018-01-21] VITALS: BP 90/50
--- NOTE | 2018-01-21 00:32 | NUR ---
PT SLEEPING NOT SIGNS OF DISTRESS NOTED ON CLOSE OBSERVATION 1:1 SITTER
--- NOTE | 2018-01-21 03:00 | NUR ---
PT HAS BEEN MONITORING CLOSE 5150 1:1 SITTER REMAIN CALM VOIDING WELL AND SLEEPING WELL DENIES AHY HALLUCINATION NOT DISTRESS NOTED I WILL CONTINUING MONITORING
--- NOTE | 2018-01-21 05:21 | NUR ---
PT GET UP TO THE RESTROOM A [id number] WELL AND COME BACK TO BE TO SLEEP NOT SIGNS OF DISTRESS NOTED DENIES ANY HALLUCINATION, DENIES ANY PAIN , PT COOPERATIVE TO ANSWER QUESTION REMAIN STABLE WAITING FOR A PLACEMENT.
[2018-01-21] MEDS: LEVOTHYROXINE 0.025 MG TAB PO SCH (06:00)
--- NOTE | 2018-01-21 06:21 | NUR ---
PT SLEEPING AT THIS TIME BUT PT HAS BEEN COOPERATIVE TO FOLLOW DR HENDRIX O DISTRESS NOTED STIL 7652 1:1 SITTER ON CLOSE MONITORING
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
[2018-01-21 07:42] VITALS: BP 85/55
[2018-01-21] MEDS: ESCITALOPRAM 20 MG TAB PO SCH (08:48)
[2018-01-21] MEDS: PHENYTOIN 100 MG CAPER PO SCH ×3 (08:48→17:39)
[2018-01-21] MEDS: DIVALPROEX 250 MG TABEC PO SCH (08:48)
[2018-01-21] MEDS: levETIRAcetam 500 MG TAB PO SCH ×2 (08:48→20:51)
--- NOTE | 2018-01-21 08:50 | NUR ---
PATIENT LYING DOWN IN BED SLEEPING, AROUSABLE BY VOICE. NO DISTRESS NOTED. DENIES ANY PAIN. SCHEDULED MEDICATIONS DUE GIVEN. SAFETY MEASURES IN PLACE, 1:1 SITTER AT BEDSIDE, WILL CONTINUE TO MONITOR.
--- NOTE | 2018-01-21 11:25 | NUR ---
CM NOTE CONCURRENT REVIEW FAXED TO [facility] [phone] JAMES [phone]
--- NOTE | 2018-01-21 11:30 | NUR ---
PATIENT LYING DOWN IN BED COMFORTABLY, AMBULATED TO BATHROOM AND BACK TO BED WITH STEADY GAIT. CONDITION UNCHANGED. SAFETY MEASURES IN PLACE, 1:1 SITTER AT BEDSIDE. WILL CONTINUE TO MONITOR.
--- NOTE | 2018-01-21 12:11 | NUR ---
[facility] aware patient is still in unit will continue to look for placement throughout the shift. will update unit when new information has been received.
--- NOTE | 2018-01-21 13:33 | NUR ---
PATIENT LYING DOWN IN BED SLEEPING, AROUSABLE BY VOICE. NO DISTRESS NOTED. DENIES ANY PAIN AT THIS TIME. CONDITION UNCHANGED. SCHEDULED MEDICATIONS DUE GIVEN. SAFETY MEASURES IN PLACE, CALL LIGHT WITHIN REACH. WILL CONTINUE TO MONITOR.
--- NOTE | 2018-01-21 14:55 | NUR ---
Mandrel Cleaner Note: I met with patient at bedside. Per patient, prior to hospital admission she was living in a house located in [place], [place]. She does not know address. She stated the agency owner of house was renting her a room. She had recently moved in that house. She stated she does not have a pcp or psychologist/target protection specialist. She expressed that she feels sad because her family does not care about her. She explained that she would like to return to her previous living arrangement or find a new home. She receives about $800 [facility] monthly and will receive funds on 01/26/18. She stated she use to have suicidal thoughts but did not have a plan. I explained to her I can help her find a room and board and informed her we first have to request psychologist to re-evaluate her and determine if patient can be discharge to accepting room and board. She verbalized understanding. Patient is in agreement with transfer to any room and board if clear by psychologist. Charge nurse Sumaya will follow up with psychologist's evaluation. Per Araceli from [facility] , she can accept patient, address [address] [place], [place]. Araceli stated room will be available after noon tomorrow 01/22/18. Transportation will have to be arrange via [employer] . Per Araceli, once patient is at her room and board she will take patient to Social Security office in order to change patient's home address to access SSDI funds.
[2018-01-21 16:00] VITALS: BP 96/59
--- NOTE | 2018-01-21 17:24 | NUR ---
PSYCH MD AT BEDSIDE CONDUCTING RE-EVALUATION OF PATIENT 5150. WILL CONTINUE TO MONITOR. 1:1 SITTER AT BEDSIDE.
--- NOTE | 2018-01-21 18:00 | NUR ---
DR. OCHOA CLEARED PATIENT FROM 5150. WILL CONTINUE TO MONITOR.
--- NOTE | 2018-01-21 19:21 | NUR ---
GAVE REPORT TO PAMPHLET DISTRIBUTOR NURSE FOR CONTINUITY OF CARE. PATIENT IN STABLE CONDITION.
--- NOTE | 2018-01-21 19:22 | NUR ---
RECEIVED BEDSIDE REPORT FROM DAY SHIFT NURSE OSCAR RN, PT STABLE, NO DISTRESS NOTED, PT HAS NO IV ACCESS, ON ROOM AIR NO SOB, PT WAS CLEARED FROM 5150, PT STABLE, CALL LIGHT WITHIN REACH, WILL CONTINUE TO MONITOR.
--- NOTE | 2018-01-21 20:51 | NUR ---
DUE MEDICATION ADMINISTERED, PT TOLERATED WELL, NO DISTRESS NOTED, CALL LIGHT WITHIN REACH, WILL CONTINUE TO MONITOR.
--- NOTE | 2018-01-21 22:00 | NUR ---
[facility] TAKEN FOR DISCHARGE, PT TOLERATED WELL, SENT TO LAB.
--- NOTE | 2018-01-21 23:53 | NUR ---
CHECKED ON PT, PT SLEEPING, NO DISTRESS NOTED, WILL CONTINUE TO MONITOR.
[2018-01-21 23:54] VITALS: BP 95/51
--- NOTE | 2018-01-22 02:16 | NUR ---
PT SLEEPING, CALL LIGHT WITHIN REACH, WILL CONTINUE TO MONITOR.
--- NOTE | 2018-01-22 04:36 | NUR ---
PT SLEEPING, NO DISTRESS NOTED, CALL LIGHT WITHIN REACH, WILL CONTINUE TO MONITOR.
[2018-01-22] MEDS: LEVOTHYROXINE 0.025 MG TAB PO SCH (05:43)
--- NOTE | 2018-01-22 05:43 | NUR ---
DUE MEDICATION ADMINISTERED, PT TOLERATED WELL, NO DISTRESS NOTED, CALL LIGHT WITHIN REACH, WILL CONTINUE TO MONITOR.
--- NOTE | 2018-01-22 07:03 | NUR ---
RECEIVED REPORT FROM EDITOR CITY NURSE AT BEDSIDE FOR CONTINUITY OF CARE. PT IS AAOX4. INTRODUCED SELF. PT DENIES PAIN. DENIES SUICIDAL THOUGHTS. NO SIGNS OF DISTRESS. BED IN LOW POSITION, WHEELS LOCKED. WILL CONTINUE TO MONITOR.
--- NOTE | 2018-01-22 07:04 | NUR ---
ENDORSED PT TO DAY SHIFT NURSE CHELSEA FERREIRA, PT IN STABLE CONDITION , NO DISTRESS NOTED.
[2018-01-22 08:00] VITALS: BP 97/61
[2018-01-22] MEDS: PHENYTOIN 100 MG CAPER PO SCH ×2 (10:55→13:03)
[2018-01-22] MEDS: levETIRAcetam 500 MG TAB PO SCH (10:55)
[2018-01-22] MEDS: ESCITALOPRAM 20 MG TAB PO SCH (10:56)
[2018-01-22] MEDS: DIVALPROEX 250 MG TABEC PO SCH (10:56)
--- NOTE | 2018-01-22 15:27 | NUR ---
PT D/C TO GO TO BOARD AND CARE. GAVE D/C FORMS, INSTRUCTIONS, RX AND LABS TO PT. PT VERBALIZED UNDERSTANDING AND SIGNED FORMS. NO IV ACCESS. ID BAND REMOVED. PT BELONGINGS RETURNED FROM SECURITY. PT CHANGED IN OWN CLOTHES AND LEFT WITH ALL PERSONAL BELONGINGS. [facility] CAME AND PICKED UP PT IN [facility]. PT LEFT IN STABLE CONDITION.
== END 2018-01-22 15:25 | DRG 52 ==
LOC: MED 13:23 → UNDOADMIN 17:57 → MTU 17:57
PROVIDERS: ADMIT Internal Medicine; ATTEND Internal Medicine
DX: G93.40 Encephalopathy, unspecified (principal); R45.851 Suicidal ideations; F33.3 Major depressive disorder, recurrent, severe with psychotic symptoms; E83.42 Hypomagnesemia; E87.6 Hypokalemia; G40.909 Epilepsy, unspecified, not intractable, without status epilepticus; E03.9 Hypothyroidism, unspecified
CPT/HCPCS: 36415; 70450; 80048; 80053; 80173; 80185; 80305; 81001; 82550; 83735; 84439; 84443; 84484; 84702; 85025; 87081; 87086; 93005; 96360; 96361; 99285; G0480; G0482; J1650; J7030